=== PATIENT | female | born 1965 | race Caucasian/White ===

== ENCOUNTER 2018-11-20 15:18 | Inpatient (IN) | payer OTHER ==
[~2018-11-20] VITALS: Ht 162.6 cm; Wt 98.5 kg
[~2018-11-20 15:18] MED LIST: Amphetamine Sal20 MG PO; CIPR500 PO; LEVSOD100 PO; LEVSOD125 PO; METR500 PO; NABU750; OXYC5 PO; Prozac20 MG PO
[2018-11-20 16:07] LABS: BASOPHILS ABSOLUTE AUTO 0.01 K/mm3 (0.00-0.23); BASOPHILS PERCENT AUTO 0 % (0-2); EOSINOPHILS ABSOLUTE AUTO 0.23 K/mm3 (0.00-0.68); EOSINOPHILS PERCENT AUTO 4 % (0-6); IMMATURE GRAN ABSOLUTE AUTO 0.02 K/mm3 (0.00-0.10); IMMATURE GRAN PERCENT AUTO 0 % (0-1); LYMPHOCYTES ABSOLUTE AUTO 1.28 K/mm3 (0.84-5.20); LYMPHOCYTES PERCENT AUTO 23 % (21-46); MONOCYTES ABSOLUTE AUTO 0.44 K/mm3 (0.16-1.47); MONOCYTES PERCENT AUTO 8 % (4-13); Mean Corpuscular HGB 17.6 pg (26.0-34.0); Mean Corpuscular Volume 71 fL (80-100); Mean Platelet Volume 10.5 fL (9.1-12.4); NEUTROPHILS ABSOLUTE AUTO 3.53 K/mm3 (1.96-9.15); NEUTROPHILS PERCENT AUTO 64 % (41-73); Platelet Count 419 K/mm3 (150-400); RDW Coefficient Variation 19.9 % (11.7-14.2); Red Blood Cell Count 2.04 M/mm3 (3.80-5.20); White Blood Cell Count 5.51 K/mm3 (4.00-11.30)
[2018-11-20 16:18] LABS: Hemoglobin 3.6 g/dL (11.5-16.0)
[2018-11-20 16:19] LABS: Hematocrit 14.4 % (33.0-51.0)
[2018-11-20 16:33] LABS: Alanine Aminotransfer (ALT/SGP 12 U/L (12-78); Albumin, Blood 3.3 g/dL (3.4-5.0); Alk Phos 79 U/L (50-136); Anion Gap 7 mmol/L (6-16); Aspartate Aminotrans (AST/SGOT 7 U/L (12-37); Bilirubin, Total 0.2 mg/dL (0.1-1.0); Blood Urea Nitrogen 9 mg/dL (8-24); Bun/Creatinine Ratio 14.3 (12.0-20.0); CO2, Blood 23 mmol/L (21-32); Calcium, Blood 7.9 mg/dL (8.5-10.1); Chloride, Blood 110 mmol/L (98-108); Creatinine, Blood 0.63 mg/dL (0.40-1.00); Globulin, Blood 3.4 g/dL (2.2-4.0); Glomerular Filtration Rate >60 (60-); Glucose, Blood 171 mg/dL (70-99); Potassium, Blood 3.9 mmol/L (3.5-5.5); Sodium, Blood 140 mmol/L (136-145); Total Protein, Blood 6.7 g/dL (6.4-8.2); Troponin I <0.015 ng/mL (0.000-0.040)
[2018-11-20] MEDS ORDERED: AMIT50 PO (19:57)
[2018-11-20] MEDS ORDERED: IBUP800 PO (19:58)
[2018-11-20 20:48] LABS: International Normalized Ratio 0.97; Prothrombin Time Results 10.3 Sec (9.7-11.5)
[2018-11-21 06:16] LABS: Anion Gap 8 mmol/L (6-16); Blood Urea Nitrogen 11 mg/dL (8-24); Bun/Creatinine Ratio 16.4 (12.0-20.0); CO2, Blood 23 mmol/L (21-32); Calcium, Blood 7.7 mg/dL (8.5-10.1); Chloride, Blood 110 mmol/L (98-108); Creatinine, Blood 0.67 mg/dL (0.40-1.00); Glomerular Filtration Rate >60 (60-); Glucose, Blood 99 mg/dL (70-99); Sodium, Blood 141 mmol/L (136-145)
[2018-11-21 10:19] LABS: BASOPHILS ABSOLUTE AUTO 0.03 K/mm3 (0.00-0.23); BASOPHILS PERCENT AUTO 0 % (0-2); EOSINOPHILS ABSOLUTE AUTO 0.27 K/mm3 (0.00-0.68); EOSINOPHILS PERCENT AUTO 4 % (0-6); Hematocrit 21.2 % (33.0-51.0); IMMATURE GRAN ABSOLUTE AUTO 0.01 K/mm3 (0.00-0.10); IMMATURE GRAN PERCENT AUTO 0 % (0-1); LYMPHOCYTES ABSOLUTE AUTO 1.69 K/mm3 (0.84-5.20); LYMPHOCYTES PERCENT AUTO 25 % (21-46); MONOCYTES PERCENT AUTO 7 % (4-13); Mean Corpuscular HGB 21.4 pg (26.0-34.0); Mean Corpuscular HGB Conc 28.3 g/dL (31.5-36.5); Mean Platelet Volume 10.8 fL (9.1-12.4); NEUTROPHILS ABSOLUTE AUTO 4.26 K/mm3 (1.96-9.15); NEUTROPHILS PERCENT AUTO 63 % (41-73); Platelet Count 378 K/mm3 (150-400); RDW Coefficient Variation 19.7 % (11.7-14.2); RDW Standard Deviation 54.6 fL (35.1-46.3); Red Blood Cell Count 2.81 M/mm3 (3.80-5.20); White Blood Cell Count 6.76 K/mm3 (4.00-11.30)
[2018-11-21 10:22] LABS: Mean Corpuscular Volume 75 fL (80-100)
[2018-11-21 11:24] LABS: Source, Urine Clean Catch
[2018-11-21 11:57] LABS: Bilirubin, Urine Neg (Neg); Blood, Urine 2+ (Neg); Glucose Qualitative, Urine Neg (Neg); Ketones, Urine Neg (Neg); Leukocyte Esterase, Urine 2+ (Neg); Nitrite, Urine Neg (Neg); Protein, Urine Neg (Neg); Urobilinogen, Urine NORM (Normal)
[2018-11-21 12:03] LABS: Color, Urine Yellow (P-Yellow)
[2018-11-21 12:04] LABS: Appearance, Urine Clear (Clear)
[2018-11-21 12:07] LABS: Squamous Epithelial Cells Few /hpf (Few)
[2018-11-21 12:08] LABS: Bacteria Few /hpf
[2018-11-21 12:09] LABS: BASOPHILS ABSOLUTE MAN 0.06 K/mm3 (0.00-0.23); BASOPHILS PERCENT MAN 1 % (0-2); EOSINOPHILS PERCENT MAN 6 % (0-6); LYMPHOCYTES ABSOLUTE MAN 1.08 K/mm3 (0.84-5.20); LYMPHOCYTES PERCENT MAN 16 % (21-46); MONOCYTES ABSOLUTE MAN 0.47 K/mm3 (0.16-1.47); MONOCYTES PERCENT MAN 7 % (4-13); NEUTROPHILS ABSOLUTE MAN 4.73 K/mm3 (1.96-9.15); SEG NEUTROPHILS PERCENT MAN 70 % (41-73); TOTAL CELLS COUNTED 100
--- NOTE | 2018-11-21 16:36 | NUR ---
Initial Visit: Palliative Care Consult for AD/POLST and Advanced Care Planning. Pt is A&Ox4 and reports 6/10 pain in her lower back and tail bone area. She reports changing positions and sitting up in a chair manages her pain. She also reports mild anxiety due to not knowing what the plan is. Pt denies dyspnea at this time. Engaged in therapeutic conversation regarding goals of care. Pt lives at home with her daughter who is present along with Pt's son and daughter in law. Pt reports that she does not have any congregation beliefs. At her baseline Pt use her wheel chair to get around and is capable of ambulation only a few feet. Pt reports this is due to deconditioning when she was heavier. Other bunn she is independent and able to dress her self, shower self, toilet, self, and cook for self. Pt reports adequate support between her family and friends. Discussed AD/POLST with Pt and left one of each with her. Educated Pt on each section in instructed Pt to contact palliative care with any questions completing forms. Pt reports at this time her biggest concerns are receiving scheduled meal trays, to speak with hospitalist of plan, and medication intervention for bowel management. Pt reports that she has not had a BM since last . Spoke with Pt's nurse and she reports that Pt has a scheduled meal tray order that will begin with dinner today. She is also agreeable for this RN to contact hospitalist regarding bowel regimen for Pt. No other concerns reported at this time. Spoke with Dr Freeman and she reports that she will consider order bowel regimen after visiting with Pt. Plan is to obtain POLST/AD once completed. Will remain available.
--- NOTE | 2018-11-22 04:46 | NUR ---
SHIFT SUMMARY PATIENT HAS BEEN ALERT AND ORIENTED X 3 THROUGHOUT SHIFT. SHE HAS BEEN PLEASANT AND COOPERATIVE WITH VITALS AND ASSESSMENTS. PT CAME IN RECEIVING BLOOD DURING HER TRANSFER FROM ER TO PCU. SHE HAD A SECOND UNIT OF BLOOD ADMINISTERED ON THE FLOOR AND TOLERATED IT WITHOUT ISSUE. PT VITALS REMAINED STABLE AND SHE DENIED ANY CHEST PAIN OR DISCOMFORT. PT DID HAVE SOME PAIN IN HER TAILBONE SHE RELATED TO SITTING SO MUCH SINCE SHE HAS BEEN HERE. PT USES WHEELCHAIR AT HOME AND SELF TRANSFERS TO AND FROM BED TO CHAIR. SHE IS INDEPENDENT IN THE ROOM AND USES BATHROOM WITHOUT ISSUE. PT STATES THAT SHE FEELS BETTER FOLLOWING BLOOD TRANSFUSION. SHE HAS HAD NO SIGNS OF BLEEDING AT THIS TIME. DR. GONG WAS IN THE ROOM AT ADMIT TO TALK WITH HER. PT WILL CONTINUE TO BE MONITORED UNTIL HANDOFF TO DAYSHIFT RN.
[2018-11-22 05:13] LABS: BASOPHILS ABSOLUTE AUTO 0.04 K/mm3 (0.00-0.23); BASOPHILS PERCENT AUTO 1 % (0-2); EOSINOPHILS ABSOLUTE AUTO 0.35 K/mm3 (0.00-0.68); EOSINOPHILS PERCENT AUTO 6 % (0-6); Hematocrit 24.9 % (33.0-51.0); Hemoglobin 7.5 g/dL (11.5-16.0); IMMATURE GRAN ABSOLUTE AUTO 0.02 K/mm3 (0.00-0.10); IMMATURE GRAN PERCENT AUTO 0 % (0-1); LYMPHOCYTES ABSOLUTE AUTO 1.97 K/mm3 (0.84-5.20); LYMPHOCYTES PERCENT AUTO 33 % (21-46); MONOCYTES ABSOLUTE AUTO 0.58 K/mm3 (0.16-1.47); MONOCYTES PERCENT AUTO 10 % (4-13); Mean Corpuscular HGB 23.2 pg (26.0-34.0); Mean Corpuscular HGB Conc 30.1 g/dL (31.5-36.5); Mean Corpuscular Volume 77 fL (80-100); Mean Platelet Volume 10.3 fL (9.1-12.4); NEUTROPHILS ABSOLUTE AUTO 3.09 K/mm3 (1.96-9.15); NEUTROPHILS PERCENT AUTO 51 % (41-73); Platelet Count 353 K/mm3 (150-400); RDW Coefficient Variation 18.9 % (11.7-14.2); RDW Standard Deviation 53.9 fL (35.1-46.3); Red Blood Cell Count 3.23 M/mm3 (3.80-5.20); White Blood Cell Count 6.05 K/mm3 (4.00-11.30)
[2018-11-22 05:50] LABS: Albumin, Blood 2.8 g/dL (3.4-5.0); Anion Gap 9 mmol/L (6-16); Blood Urea Nitrogen 12 mg/dL (8-24); Bun/Creatinine Ratio 18.8 (12.0-20.0); CO2, Blood 21 mmol/L (21-32); Calcium, Blood 7.6 mg/dL (8.5-10.1); Chloride, Blood 110 mmol/L (98-108); Creatinine, Blood 0.64 mg/dL (0.40-1.00); Glomerular Filtration Rate >60 (60-); Glucose, Blood 83 mg/dL (70-99); Phosphorus, Blood 3.9 mg/dL (2.5-4.9); Sodium, Blood 140 mmol/L (136-145)
--- NOTE | 2018-11-22 11:28 | NUR ---
PT GAVE KASHMIR PERMISSION TO PROVIDE CARE 11/22/18.
[2018-11-22 12:01] LABS: Hemoglobin 7.9 g/dL (11.5-16.0)
--- NOTE | 2018-11-22 14:38 | NUR ---
PCU DAYSHIFT ASSUMED CARE OF PT APPROX. 0700. PT A&O X4. ASSESSMENT COMPLETED. VITAL SIGNS STABLE. RECIEVED ORDERS FROM GI PHYSICAIN TO MAKE PT NPO FOR COLONOSCOPY TODAY. PT NPO AND BEGAN PREP ORDERED. PT BED IN LOW POSITION, CALL LIGHT IN REACH AND PT WHEELCHAIR AT BEDSIDE. WILL CONTINUE TO MONITOR.
--- NOTE | 2018-11-22 16:21 | NUR ---
History, Chart, Medications and Allergies reviewed before start of procedure.Lungs clear T/O to Auscultation. Pre-Op teaching done. Pt verbalizes understanding. Patient confirms NPO status and agrees with scheduled surgery.
--- NOTE | 2018-11-22 19:43 | NUR ---
SHIFT SUMMARY PT PLEASANT, COOPERATIVE AND USES CALL LIGHT APPROPRIATELY. PT REMAINS A&O X4. ASSESSMENT FINDINGS REMAIN UNCHANGED. VITAL SIGNS STABLE. PT WENT TO DAY SURGERY FOR COLONOSCOPY. PT ARRIVED BACK TO UNIT. NO S/SX OF ACUTE DISTRESS. REPORT WAS RECIEVED. PT WAS UNABLE TO HAVE COLONOSCOPY DONE PT WAS NOT CLEANED OUT ALL THE WAY. PT WAS STILL SEDATED. BEGAN MONITORING VITALS SIGNS PER PROTOCOL. PT TO UNDERGO COLONOSCOPY TOMORROW. BED IN LOW POSITION, CALL LIGHT IN REACH AND PT DENIES ANY NEEDS AT THIS TIME. WILL CONTINUE TO MONITOR UNTIL HANDOFF TO NIGHTSHIFT RN.
[2018-11-23 04:11] LABS: BASOPHILS ABSOLUTE AUTO 0.03 K/mm3 (0.00-0.23); BASOPHILS PERCENT AUTO 1 % (0-2); EOSINOPHILS PERCENT AUTO 7 % (0-6); Hematocrit 26.2 % (33.0-51.0); Hemoglobin 7.8 g/dL (11.5-16.0); IMMATURE GRAN ABSOLUTE AUTO 0.02 K/mm3 (0.00-0.10); IMMATURE GRAN PERCENT AUTO 0 % (0-1); LYMPHOCYTES ABSOLUTE AUTO 1.77 K/mm3 (0.84-5.20); LYMPHOCYTES PERCENT AUTO 31 % (21-46); MONOCYTES ABSOLUTE AUTO 0.53 K/mm3 (0.16-1.47); MONOCYTES PERCENT AUTO 9 % (4-13); Mean Corpuscular HGB 23.6 pg (26.0-34.0); Mean Corpuscular HGB Conc 29.8 g/dL (31.5-36.5); Mean Corpuscular Volume 79 fL (80-100); Mean Platelet Volume 10.2 fL (9.1-12.4); NEUTROPHILS ABSOLUTE AUTO 3.01 K/mm3 (1.96-9.15); NEUTROPHILS PERCENT AUTO 52 % (41-73); Platelet Count 397 K/mm3 (150-400); RDW Standard Deviation 57.3 fL (35.1-46.3); Red Blood Cell Count 3.31 M/mm3 (3.80-5.20); White Blood Cell Count 5.76 K/mm3 (4.00-11.30)
[2018-11-23 04:26] LABS: Albumin, Blood 2.8 g/dL (3.4-5.0); Anion Gap 9 mmol/L (6-16); Blood Urea Nitrogen 7 mg/dL (8-24); Bun/Creatinine Ratio 12.5 (12.0-20.0); CO2, Blood 24 mmol/L (21-32); Calcium, Blood 7.8 mg/dL (8.5-10.1); Chloride, Blood 109 mmol/L (98-108); Creatinine, Blood 0.56 mg/dL (0.40-1.00); Glomerular Filtration Rate >60 (60-); Glucose, Blood 88 mg/dL (70-99); Phosphorus, Blood 3.4 mg/dL (2.5-4.9); Potassium, Blood 3.7 mmol/L (3.5-5.5); Sodium, Blood 142 mmol/L (136-145)
--- NOTE | 2018-11-23 16:00 | NUR ---
PT TAKEN TO DAY SURGERY FOR PROCEDURE. WILL AWAIT RETURN.
--- NOTE | 2018-11-23 16:44 | NUR ---
11/23/18 1644 Wendy Pitt History, Chart, Medications and Allergies reviewed before start of procedure.PATIENT DETERMINED TO BE ASA APPROPRIATE FOR PROPOFOL SEDATION PRIOR TO START OF PROCEDURE BY . DISCUSSED WITH MD PRIOR TO THE START OF PATINET THAT PATIENT HAS INCREASED BMI GREATER THAN 40 WELL HX OF MIRA. MD FEELS APPROPRIATE FOR RN SEDATION. MONITOR INTACT WITH CONTINUOUS PULSE OXIMETRY AND INTERMITTENT BP. 3-LEAD EKG REVIEWED WITH PHYSICIAN PRIOR TO START OF PROCEDURE.O2 VIA N/C INTACT THROUGHOUT SEDATION/PROCEDURE.
--- NOTE | 2018-11-23 18:01 | NUR ---
PT RETURNED FROM DAY SURGERY. PT ALERT AND ORIENTED. RECOVERY VITALS HAVE BEEN STARTED AND HAVE BEEN STABLE. PT DENIES ANY PAIN OR NAUSEA AT THIS TIME. PT REPORTS MINIMAL VAGINAL BLEEDING THIS SHIFT. PT ABLE TO TRANSFER TO WHEELCHAIR INDEPENDENTLY AND GO TO THE BATHROOM NEEDED WITH A SBA. PT ABLE TO SIT UP AND CONVERSE WITH FAMILY AT THIS TIME. WILL CONTINUE TO MONITOR AND REPORT TO ONCOMING RN. WILL REMAIN IN ROOM FOR 15 MINUTES.
[2018-11-24 05:42] LABS: BASOPHILS ABSOLUTE AUTO 0.06 K/mm3 (0.00-0.23); BASOPHILS PERCENT AUTO 1 % (0-2); EOSINOPHILS ABSOLUTE AUTO 0.45 K/mm3 (0.00-0.68); EOSINOPHILS PERCENT AUTO 7 % (0-6); Hematocrit 26.5 % (33.0-51.0); Hemoglobin 7.7 g/dL (11.5-16.0); IMMATURE GRAN ABSOLUTE AUTO 0.03 K/mm3 (0.00-0.10); IMMATURE GRAN PERCENT AUTO 0 % (0-1); LYMPHOCYTES ABSOLUTE AUTO 1.75 K/mm3 (0.84-5.20); LYMPHOCYTES PERCENT AUTO 25 % (21-46); MONOCYTES ABSOLUTE AUTO 0.56 K/mm3 (0.16-1.47); MONOCYTES PERCENT AUTO 8 % (4-13); Mean Corpuscular HGB 23.3 pg (26.0-34.0); Mean Corpuscular HGB Conc 29.1 g/dL (31.5-36.5); Mean Corpuscular Volume 80 fL (80-100); Mean Platelet Volume 10.4 fL (9.1-12.4); NEUTROPHILS ABSOLUTE AUTO 4.09 K/mm3 (1.96-9.15); NEUTROPHILS PERCENT AUTO 59 % (41-73); Platelet Count 402 K/mm3 (150-400); RDW Standard Deviation 59.7 fL (35.1-46.3); Red Blood Cell Count 3.31 M/mm3 (3.80-5.20); White Blood Cell Count 6.94 K/mm3 (4.00-11.30)
--- NOTE | 2018-11-24 06:07 | NUR ---
PCU NOC SHIFT SUMMARY PATIENT ALERT AND ORIENTED X4. INDEPENDENT IN ROOM WITH WHEELCHAIR (SELF TRANSFERS). PATIENTS L/S CLEAR, RESP E/U ON ROOM AIR. VSS. NO S/SX OF DISTRESS NOTED T/O SHIFT. PATIENT STATES THAT SHE IS HOPING TO D/C HOME TODAY AFTER HER SCOPE YESTERDAY. VERY MILD VAGINAL SPOTTING NOTED THIS SHIFT. WILL CONTINUE TO MONITOR AND REPORT TO DAYSHIFT RN.
[2018-11-24] MEDS ORDERED: Tylenol325 MG PO (08:37)
[2018-11-24] MEDS ORDERED: Amoxicillin875 MG PO (08:39)
[2018-11-24] MEDS ORDERED: Ferrous Sulfat324 MG PO (08:42)
== END 2018-11-24 09:34 | disposition home or self-care (01) | DRG 378 ==
LOC: ER 15:18 → ERHOLD 20:01 → PCU 20:01
PROVIDERS: Emergency Medicine; Family Medicine; Hospitalist; Internal Medicine Gastroenterology; Nurse Practitioner Acute Care; Physician Assistant; ADMIT Hospitalist
PROC: 30233N1 Transfusion of Nonautologous Red Blood Cells into Peripheral Vein, Percutaneous Approach (ICD-10-PCS; principal; 2018-11-20)
PROC: 3E02340 Introduction of Influenza Vaccine into Muscle, Percutaneous Approach (ICD-10-PCS; 2018-11-21)
PROC: 0DJD8ZZ Inspection of Lower Intestinal Tract, Via Natural or Artificial Opening Endoscopic (ICD-10-PCS; 2018-11-22)
PROC: 0DBL8ZX Excision of Transverse Colon, Via Natural or Artificial Opening Endoscopic, Diagnostic (ICD-10-PCS; 2018-11-23)
PROC: 0DBP8ZX Excision of Rectum, Via Natural or Artificial Opening Endoscopic, Diagnostic (ICD-10-PCS; 2018-11-23)
PROC: 0DBM8ZX Excision of Descending Colon, Via Natural or Artificial Opening Endoscopic, Diagnostic (ICD-10-PCS; 2018-11-23 16:00)
DX: K92.1 Melena (principal); D62 Acute posthemorrhagic anemia; N39.0 Urinary tract infection, site not specified; Z68.41 Body mass index [BMI] 40.0-44.9, adult; K57.32 Diverticulitis of large intestine without perforation or abscess without bleeding; N92.1 Excessive and frequent menstruation with irregular cycle; E28.2 Polycystic ovarian syndrome; E66.01 Morbid (severe) obesity due to excess calories; R73.03 Prediabetes; R07.9 Chest pain, unspecified; E89.0 Postprocedural hypothyroidism; K63.5 Polyp of colon; B95.1 Streptococcus, group B, as the cause of diseases classified elsewhere; K64.8 Other hemorrhoids; D17.79 Benign lipomatous neoplasm of other sites; Z23 Encounter for immunization; Z98.84 Bariatric surgery status; Z79.899 Other long term (current) drug therapy; Z88.1 Allergy status to other antibiotic agents
CPT/HCPCS: 36415; 36430; 71046; 76830; 76856; 80048; 80053; 80069; 81001; 82607; 82728; 82746; 83540; 83550; 83735; 84439; 84443; 84484; 85014; 85018; 85025; 85610; 86850; 86900; 86901; 86920; 87086; 87147; 90686; 93005; 93010; 96361; 96365; 96366; 96375; 99285-25; C9113; G0008; J2270; J7030; J7120; P9016

== ENCOUNTER → 2018-11-28 | Outpatient (CLI) | payer OTHER ==
[~2018-11-28] MED LIST changes: +AMIT50 PO; +Amoxicillin875 MG PO; +Ferrous Sulfat324 MG PO; +IBUP800 PO; +Tylenol325 MG PO
== END | disposition home or self-care (01) ==
LOC: LAB SHORT 12:26 → PLD 12:26
DX: C54.1 Malignant neoplasm of endometrium (principal)
CPT/HCPCS: 88305

== ENCOUNTER 2019-01-14 12:13 | Inpatient (IN) | payer OTHER ==
[~2019-01-14] VITALS: Ht 162.6 cm; Wt 96.2 kg
[~2019-01-14 12:13] MED LIST changes: -Ferrous Sulfat324 MG PO; +Ferrous Sulfat325 M2 PO; -LEVSOD100 PO; +LEVSOD150 PO
[2019-01-14 13:48] LABS: Hematocrit 27.1 % (33.0-51.0); Hemoglobin 8.3 g/dL (11.5-16.0); Mean Corpuscular HGB 26.6 pg (26.0-34.0); Mean Corpuscular HGB Conc 30.6 g/dL (31.5-36.5); Mean Corpuscular Volume 87 fL (80-100); Mean Platelet Volume 9.3 fL (9.1-12.4); Platelet Count 674 K/mm3 (150-400); RDW Standard Deviation 66.9 fL (35.1-46.3); Red Blood Cell Count 3.12 M/mm3 (3.80-5.20); White Blood Cell Count 43.04 K/mm3 (4.00-11.30)
[2019-01-14 14:04] LABS: Albumin, Blood 1.7 g/dL (3.4-5.0); Albumin/Globulin Ratio 0.3 (0.8-1.8); Bilirubin, Total 0.4 mg/dL (0.1-1.0); Bun/Creatinine Ratio 42.6 (12.0-20.0); Creatinine, Blood 1.15 mg/dL (0.40-1.00); Globulin, Blood 5.1 g/dL (2.2-4.0); Potassium, Blood 4.4 mmol/L (3.5-5.5); Total Protein, Blood 6.8 g/dL (6.4-8.2)
[2019-01-14] MEDS ORDERED: Diflucan100 MG PO (14:46)
[2019-01-14] MEDS ORDERED: Norco 5-325 Ta1 EACH PO (14:46)
[2019-01-14 15:11] LABS: BAND PERCENT MAN 3 % (0-8); BASOPHILS PERCENT MAN 0 % (0-2); EOSINOPHILS PERCENT MAN 0 % (0-6); MONOCYTES PERCENT MAN 0 % (4-13); MYELOCYTE ABSOLUTE MAN 0.43 K/mm3 (0.00-0.00); MYELOCYTE PERCENT MAN 1 % (0-0); SEG NEUTROPHILS PERCENT MAN 96 % (41-73); TOTAL CELLS COUNTED 100
[2019-01-14] MEDS ORDERED: Metformin HCl500 MG PO (16:02)
[2019-01-14] MEDS ORDERED: IBUP800 PO (16:03)
[2019-01-14] MEDS ORDERED: AMIT50 PO (16:04)
[2019-01-14] MEDS ORDERED: ALPR1 PO (16:11)
[2019-01-14] MEDS ORDERED: TRIDERM28.4 GM TOP (16:25)
[2019-01-14] MEDS ORDERED: CHOL10002 PO (16:27)
--- NOTE | 2019-01-14 18:56 | NUR ---
PT ARRIVED TO THE ROOM AT APPROXIMATELY 1745. PT ALERT AND ORIENTED UPON ARRIVAL. COMPLAINED OF 9/10 PAIN. PT REPORTS PAIN MEDICATION WAS MINIMALLY EFFECTIVE INI THE ER. WILL CONTINUE TO MONITOR.
--- NOTE | 2019-01-14 18:57 | NUR ---
DR. LAN NOTIFIED THAT PT ARRIVED TO THE ROOM. ADMIT ORDERS REQUSTED.
--- NOTE | 2019-01-14 20:10 | NUR ---
SHIFT SUMMARY PT REPORTS PAIN IS ELEVATED AND IS NOT RESOLVED WITH IV PAIN MEDICATION. PT ALERT AND ORIENTED. FAMILY AT THE BEDSIDE WILL CONTINUE TO MONITOR.
--- NOTE | 2019-01-14 21:30 | NUR ---
VEGAS: VEGAS CATH PLACED PER ORDERS. LABIA W/YEASTY, WHITE COATING. LABIA BEGAN TO BLEED AFTER WIPING GENTLY. PT TEARFUL W/LIGHT TOUCH. REP BURNING SENSATION W/CLEANSING AREA. PT STATED "JUST HURRY" PT CONSOLED AND EDUCATED ON IMPORTANCE OF CLEANSING AREA PRIOR TO CATH PLACEMENT. PT REP UNABLE TO SEPARATE LEGS, REQESTED ADDITIONAL STAFF TO ASSIST W/HOLDING LEGS APART. 2 RN'S, GENERAL OPERATIONS AGENT AND STUDENT NURSE IN FOR PLACEMENT. PT EDUCATED AND REASSURRED DURING PROCEDURE. PT APPOLOGETIC R/T TEARFULNESS DURING PROCEDURE, THANKED STAFF FOR UNDERSTANDING. DAUGHTER OUT OF ROOM DURING PROCEDURE, UPDATED AFTER.
[2019-01-14 21:41] LABS: Source, Urine Catheter
[2019-01-14 21:45] LABS: Appearance, Urine Clear (Clear); Bilirubin, Urine Neg (Neg); Blood, Urine Neg (Neg); Color, Urine Yellow (P-Yellow); Glucose Qualitative, Urine Neg (Neg); Ketones, Urine Neg (Neg); Leukocyte Esterase, Urine Neg (Neg); Nitrite, Urine Neg (Neg); Protein, Urine 1+ (Neg); Specific Gravity, Urine 1.015 (1.003-1.022); Urobilinogen, Urine NORM (Normal)
--- NOTE | 2019-01-14 22:00 | NUR ---
NURSING COUNSELOR DORMITORY NOTIFIED BY PT FAMILY MEMBER OF CONCERN R/T PT. THIS RN IN TO ASSESS FOR ANY CONCERNS PT MAY HAVE. PT AND DAUGHTER DENIED ANY CONCERNS. NURSING COUNSELOR DORMITORY ALSO IN TO SPEAK W/PT AND DAUGHTER REGARDING ANY POTENTIAL CONCERNS W/CARE, STAFF, ETC. BOTH PT AND DAUGHTER DENIED HAVING ANY CONCERNS OR ISSUES.
--- NOTE | 2019-01-15 04:22 | NUR ---
CORRECTION SHIFT SUMMARY COMPLETED AT 1945 ON 01/14/19
--- NOTE | 2019-01-15 04:28 | NUR ---
CORRECTION SHIFT ASSESSMENT COMPLETED AT 1945 ON 01/14/19.
[2019-01-15 05:27] LABS: BASOPHILS ABSOLUTE AUTO 0.12 K/mm3 (0.00-0.23); BASOPHILS PERCENT AUTO 0 % (0-2); EOSINOPHILS ABSOLUTE AUTO 0.01 K/mm3 (0.00-0.68); EOSINOPHILS PERCENT AUTO 0 % (0-6); Hemoglobin 7.1 g/dL (11.5-16.0); IMMATURE GRAN ABSOLUTE AUTO 1.86 K/mm3 (0.00-0.10); IMMATURE GRAN PERCENT AUTO 4 % (0-1); LYMPHOCYTES ABSOLUTE AUTO 0.92 K/mm3 (0.84-5.20); LYMPHOCYTES PERCENT AUTO 2 % (21-46); MONOCYTES ABSOLUTE AUTO 0.73 K/mm3 (0.16-1.47); MONOCYTES PERCENT AUTO 2 % (4-13); Mean Corpuscular HGB Conc 30.9 g/dL (31.5-36.5); Mean Corpuscular Volume 88 fL (80-100); Mean Platelet Volume 9.3 fL (9.1-12.4); NEUTROPHILS ABSOLUTE AUTO 43.35 K/mm3 (1.96-9.15); NEUTROPHILS PERCENT AUTO 92 % (41-73); Platelet Count 672 K/mm3 (150-400); RDW Coefficient Variation 20.5 % (11.7-14.2); RDW Standard Deviation 66.1 fL (35.1-46.3); Red Blood Cell Count 2.63 M/mm3 (3.80-5.20); White Blood Cell Count 46.99 K/mm3 (4.00-11.30)
[2019-01-15 05:48] LABS: Anion Gap 9 mmol/L (6-16); Blood Urea Nitrogen 35 mg/dL (8-24); Bun/Creatinine Ratio 44.4 (12.0-20.0); CO2, Blood 21 mmol/L (21-32); Calcium, Blood 6.9 mg/dL (8.5-10.1); Chloride, Blood 105 mmol/L (98-108); Creatinine, Blood 0.79 mg/dL (0.40-1.00); Glomerular Filtration Rate >60 (60-); Glucose, Blood 108 mg/dL (70-99); Potassium, Blood 4.4 mmol/L (3.5-5.5); Sodium, Blood 135 mmol/L (136-145)
--- NOTE | 2019-01-15 07:10 | NUR ---
pt sleeping wakes to verbal stimuli stated pain is 6/10 having some mild nausea off and on pt stated pain is in mult places using lens hardener also has a ice pack to middle of her legs pt stated her yeast infection is very painful to the touch and her mouth also hurts due to yeast
--- NOTE | 2019-01-15 07:21 | NUR ---
SHIFT SUMMARY PT TRANSFER FROM ED WITH COMPLAINS OF LOWER ABD/PELVIC PAIN FOLLOWING RECENT HYSTERECTOMY 3 WEEKS AGO PER PATIENT REPORT. BP TRENDING HYPO, INCREASED TO APPROXIMATELY 100/80 FOLLOWING FLUID BOLUS PER ORDERS. 02 SATS >90 ON RA. PT IS MINIMALLY AMBULATORY AT BASELINE, W/C BOUND DUE TO LIMITED ROM AND HIP PAIN. PT COMPLAINS OF PAIN R/T RED RASH UNDER PANNUS AND GANGA AREA. REDNESS AND AREA OF SKIN BREAKDOWN NOTED ON COCCYX, MEPILEX DRESSING PLACED. GANGA CARE DONE AND VEGAS CATHETER PLACED PER CLINICAL JUDGMENT, PT REPORT OF SEVERE PAIN WITH MOVEMENT AND INABILITY TO VOID USING BEDPAN. PT REP ADEQUATE PAIN RELIEF WITH MEDICATION PER ORDERS.
--- NOTE | 2019-01-15 07:53 | NUR ---
dr barnhart ans service called re low b/p talked with dr barnhart re hosp consult to manage b/p
--- NOTE | 2019-01-15 09:12 | NUR ---
PT HAS POS BC DR MILLARD NOTIFIED GRAM POS COCCI IN CHAINS MESSAGE LEFT
--- NOTE | 2019-01-15 09:14 | NUR ---
DR LAN CALLED
--- NOTE | 2019-01-15 11:34 | NUR ---
1 UNIT PRBC INFUSING
--- NOTE | 2019-01-15 12:35 | NUR ---
DR LAN BY TO SEE PT PLAN TO TRANSFER TO [facility] UNDER DR NATARAJAN CARE FOR POSS OR TO REMOVE POST-OP INFECTION DR MILLARD AT BEDSIDE
--- NOTE | 2019-01-15 14:00 | NUR ---
pt ref her nystatin powder discussed with pt importance for her skin pt has multiple openings in her skin also encouraging pt to turn pt understands ok per dr barnhart to give drum drier bolus 25 mcg pt still declining
--- NOTE | 2019-01-15 16:58 | NUR ---
REPORT CALLED TO KATHY JENSEN AT [facility] TRANSPORT TEAM IN ROOM
--- NOTE | 2019-01-15 17:45 | NUR ---
TRANSPORT VIA GROUND WITH RN ACOUSTIC INTELLIGENCE SPECIALIST TO [facility]
== END 2019-01-15 17:47 | disposition short-term general hospital (02) | DRG 862 ==
LOC: ER 12:13 → SURS 15:44
PROVIDERS: Emergency Medicine; ADMIT Obstetrics & Gynecology
PROC: 30253N1 (ICD-10-PCS; principal; 2019-01-14)
DX: T81.43XA Infection following a procedure, organ and space surgical site, initial encounter (principal); K65.1 Peritoneal abscess; B37.9 Candidiasis, unspecified; T81.44XA Sepsis following a procedure, initial encounter; D50.9 Iron deficiency anemia, unspecified; E03.9 Hypothyroidism, unspecified; E11.9 Type 2 diabetes mellitus without complications; E66.01 Morbid (severe) obesity due to excess calories; M79.7 Fibromyalgia; Z98.84 Bariatric surgery status; E05.00 Thyrotoxicosis with diffuse goiter without thyrotoxic crisis or storm; C54.1 Malignant neoplasm of endometrium
CPT/HCPCS: 36415; 36430; 74176; 76705; 80048; 80053; 83605; 83690; 85025; 86850; 86900; 86901; 86923; 87040; 87081; 87147; 87430; 96365; 96375; 99285-25; A9270-GY; J1170; J1650; J2405; J2543; J3010; J3370; J7030; J7050; J7120; P9016

== ENCOUNTER 2019-05-06 17:32 | Emergency (ER) | payer OTHER ==
[~2019-05-06] VITALS: Ht 162.6 cm; Wt 86.2 kg
[~2019-05-06 17:32] MED LIST changes: +ALPR1 PO; +CHOL10002 PO; +Diflucan100 MG PO; +Metformin HCl500 MG PO; +Norco 5-325 Ta1 EACH PO; +TRIDERM28.4 GM TOP
[2019-05-06 18:06] LABS: BASOPHILS ABSOLUTE AUTO 0.01 K/mm3 (0.00-0.23); BASOPHILS PERCENT AUTO 0 % (0-2); EOSINOPHILS ABSOLUTE AUTO 0.01 K/mm3 (0.00-0.68); EOSINOPHILS PERCENT AUTO 0 % (0-6); Hematocrit 32.4 % (33.0-51.0); Hemoglobin 10.4 g/dL (11.5-16.0); IMMATURE GRAN ABSOLUTE AUTO 0.05 K/mm3 (0.00-0.10); IMMATURE GRAN PERCENT AUTO 2 % (0-1); LYMPHOCYTES ABSOLUTE AUTO 0.13 K/mm3 (0.84-5.20); LYMPHOCYTES PERCENT AUTO 5 % (21-46); MONOCYTES ABSOLUTE AUTO 0.04 K/mm3 (0.16-1.47); MONOCYTES PERCENT AUTO 2 % (4-13); Mean Corpuscular HGB 31.5 pg (26.0-34.0); Mean Corpuscular HGB Conc 32.1 g/dL (31.5-36.5); Mean Corpuscular Volume 98 fL (80-100); Mean Platelet Volume 9.9 fL (9.1-12.4); NEUTROPHILS ABSOLUTE AUTO 2.45 K/mm3 (1.96-9.15); NEUTROPHILS PERCENT AUTO 91 % (41-73); Platelet Count 157 K/mm3 (150-400); RDW Coefficient Variation 15.9 % (11.7-14.2); RDW Standard Deviation 54.6 fL (35.1-46.3); White Blood Cell Count 2.69 K/mm3 (4.00-11.30)
[2019-05-06 18:29] LABS: Alanine Aminotransfer (ALT/SGP 85 U/L (12-78); Albumin, Blood 3.3 g/dL (3.4-5.0); Alk Phos 103 U/L (50-136); Anion Gap 3 mmol/L (6-16); Aspartate Aminotrans (AST/SGOT 112 U/L (12-37); Bilirubin, Total 0.2 mg/dL (0.1-1.0); Blood Urea Nitrogen 17 mg/dL (8-24); Bun/Creatinine Ratio 26.7 (12.0-20.0); CO2, Blood 26 mmol/L (21-32); Calcium, Blood 8.2 mg/dL (8.5-10.1); Chloride, Blood 108 mmol/L (98-108); Creatinine, Blood 0.64 mg/dL (0.40-1.00); Globulin, Blood 3.4 g/dL (2.2-4.0); Glomerular Filtration Rate >60 (60-); Glucose, Blood 179 mg/dL (70-99); Potassium, Blood 4.2 mmol/L (3.5-5.5); Sodium, Blood 137 mmol/L (136-145); Total Protein, Blood 6.7 g/dL (6.4-8.2); Troponin I <0.015 ng/mL (0.000-0.040)
[2019-05-06] MEDS ORDERED: Zofran4 MG PO (20:00)
[2019-05-06] MEDS ORDERED: Desyrel150 MG PO (20:01)
[2019-05-06] MEDS ORDERED: Prozac40 MG PO (20:01)
[2019-05-06 21:28] LABS: Troponin I <0.015 ng/mL (0.000-0.040)
== END 2019-05-06 23:17 | disposition home or self-care (01) ==
LOC: ER 17:32
PROVIDERS: Emergency Medicine
DX: E03.9 Hypothyroidism, unspecified (principal); R00.2 Palpitations; Z88.1 Allergy status to other antibiotic agents; Z79.899 Other long term (current) drug therapy; E11.9 Type 2 diabetes mellitus without complications
CPT/HCPCS: 36415; 80053; 83880; 84443; 84484; 85025; 93005; 93010; 99285-25

== ENCOUNTER 2019-05-14 06:02 | Day surgery (SDC) | payer OTHER ==
[~2019-05-14] VITALS: Ht 162.6 cm; Wt 88.9 kg
[~2019-05-14 06:02] MED LIST changes: +Desyrel150 MG PO; +Prozac40 MG PO; +Zofran4 MG PO
--- NOTE | 2019-05-14 06:25 | NUR ---
History, Chart, Medications and Allergies reviewed before start of procedure. Patient confirms NPO status and agrees with scheduled surgery. Patient States Post-Procedure ride home has been arranged.
--- NOTE | 2019-05-14 07:12 | NUR ---
Lungs clear T/O to Auscultation. PT HAS 22 G IV RIGHT [facility] THAT WAS WRAPPED IN [place]. FLUSHES WELL.
--- NOTE | 2019-05-14 09:47 | NUR ---
DRESSING CLEAN, DRY & INTACT.
--- NOTE | 2019-05-14 10:24 | NUR ---
PATIENT UP TO DRESS WITH DAUGHTER'S ASSISTANCE, AT BASELINE, DID WELL. PATIENT D/C IN STABLE CONDITION VIA PERSONAL W/C TO DAUGHTER'S CARE.
--- NOTE | 2019-05-14 10:26 | NUR ---
IV REMOVED THAT HAD BEEN PLACED AT LAST TREATMENT, 22 G IN RIGHT WRIST/FOREARM AREA. SITE WITHOUT REDNESS AT THE TIME DC'D.
== END 2019-05-14 10:28 | disposition home or self-care (01) ==
LOC: ORSCMMR 06:02 → ORD 07:30 → ORSCMMR 07:30
PROVIDERS: Surgery
PROC: 0JH60WZ Insertion of Totally Implantable Vascular Access Device into Chest Subcutaneous Tissue and Fascia, Open Approach (ICD-10-PCS; principal; 2019-05-14 07:30)
DX: C54.1 Malignant neoplasm of endometrium (principal); J45.909 Unspecified asthma, uncomplicated; E11.9 Type 2 diabetes mellitus without complications; E05.90 Thyrotoxicosis, unspecified without thyrotoxic crisis or storm; Z79.899 Other long term (current) drug therapy
CPT/HCPCS: 77001; A9270-GY; C1788; J0690; J1100; J1642; J2250; J2370; J2405; J2704; J7120

== ENCOUNTER 2019-12-06 08:28 | Day surgery (SDC) | payer OTHER | END 2019-12-06 22:54 | disposition home or self-care (01) | LOC: WOUND 08:28 | DX: T81.31XD Disruption of external operation (surgical) wound, not elsewhere classified, subsequent encounter (principal); E11.9 Type 2 diabetes mellitus without complications; E66.9 Obesity, unspecified; J45.909 Unspecified asthma, uncomplicated; E05.90 Thyrotoxicosis, unspecified without thyrotoxic crisis or storm; Z98.84 Bariatric surgery status; Z68.29 Body mass index [BMI] 29.0-29.9, adult | CPT/HCPCS: G0463 ==

== ENCOUNTER 2019-12-13 00:37 | Day surgery (SDC) | payer OTHER | END 2019-12-13 22:39 | disposition home or self-care (01) | LOC: WOUND 00:37 | DX: T81.31XD Disruption of external operation (surgical) wound, not elsewhere classified, subsequent encounter (principal); J45.909 Unspecified asthma, uncomplicated; E66.9 Obesity, unspecified; E11.9 Type 2 diabetes mellitus without complications; Z98.84 Bariatric surgery status; Z68.29 Body mass index [BMI] 29.0-29.9, adult; Z79.899 Other long term (current) drug therapy | CPT/HCPCS: G0463 ==

== ENCOUNTER 2020-01-26 17:46 | Emergency (ER) | payer OTHER ==
[~2020-01-26] VITALS: Ht 162.6 cm; Wt 83.0 kg
[~2020-01-26 17:46] MED LIST changes: +HYDR1TAB94 PO; +METF500 PO; +OMEP20ER PO; +PARO20 PO; +TRAM50 PO
[2020-01-26] MEDS ORDERED: Midodrine HCl5 MG PO (18:09)
[2020-01-26] MEDS ORDERED: CYCL10 PO (18:40)
== END 2020-01-26 18:53 | disposition home or self-care (01) ==
LOC: ER 17:46
DX: S16.1XXA Strain of muscle, fascia and tendon at neck level, initial encounter (principal); E11.9 Type 2 diabetes mellitus without complications; D64.9 Anemia, unspecified; E03.9 Hypothyroidism, unspecified; E66.01 Morbid (severe) obesity due to excess calories; Z68.31 Body mass index [BMI] 31.0-31.9, adult; Z88.1 Allergy status to other antibiotic agents; Z79.899 Other long term (current) drug therapy; Z79.84 Long term (current) use of oral hypoglycemic drugs; V49.59XA Passenger injured in collision with other motor vehicles in traffic accident, initial encounter
CPT/HCPCS: 72040; 99284-25

== ENCOUNTER 2020-02-05 00:12 | Day surgery (SDC) | payer OTHER ==
[~2020-02-05 00:12] MED LIST changes: +CYCL10 PO; +Midodrine HCl5 MG PO
== END 2020-02-05 22:41 | disposition home or self-care (01) ==
LOC: ATC 00:12
DX: D50.9 Iron deficiency anemia, unspecified (principal); C54.1 Malignant neoplasm of endometrium; E11.9 Type 2 diabetes mellitus without complications; J45.909 Unspecified asthma, uncomplicated; Z79.84 Long term (current) use of oral hypoglycemic drugs; Z79.899 Other long term (current) drug therapy; Z88.1 Allergy status to other antibiotic agents
CPT/HCPCS: 99211

== ENCOUNTER 2020-02-12 00:27 | Day surgery (SDC) | payer OTHER | END 2020-02-12 22:51 | disposition home or self-care (01) | LOC: WOUND 00:27 | DX: T81.31XD Disruption of external operation (surgical) wound, not elsewhere classified, subsequent encounter (principal); J45.909 Unspecified asthma, uncomplicated; E11.9 Type 2 diabetes mellitus without complications; E66.9 Obesity, unspecified; Z88.1 Allergy status to other antibiotic agents; E89.0 Postprocedural hypothyroidism; Z68.32 Body mass index [BMI] 32.0-32.9, adult; Z79.899 Other long term (current) drug therapy; Z79.84 Long term (current) use of oral hypoglycemic drugs | CPT/HCPCS: G0463 ==

== ENCOUNTER 2020-02-12 13:28 | Day surgery (SDC) | payer OTHER | END 2020-02-12 15:20 | disposition home or self-care (01) | LOC: ATC 13:28 | DX: D50.9 Iron deficiency anemia, unspecified (principal); J45.909 Unspecified asthma, uncomplicated; E11.9 Type 2 diabetes mellitus without complications; E05.90 Thyrotoxicosis, unspecified without thyrotoxic crisis or storm; Z79.899 Other long term (current) drug therapy; Z88.1 Allergy status to other antibiotic agents | CPT/HCPCS: 99211 ==

== ENCOUNTER 2020-02-20 00:09 | Day surgery (SDC) | payer OTHER | END 2020-02-20 11:26 | disposition home or self-care (01) | LOC: ATC 00:09 | DX: D50.9 Iron deficiency anemia, unspecified (principal); E11.9 Type 2 diabetes mellitus without complications; J45.909 Unspecified asthma, uncomplicated; E03.9 Hypothyroidism, unspecified; Z79.899 Other long term (current) drug therapy; Z88.1 Allergy status to other antibiotic agents | CPT/HCPCS: 99211 ==

== ENCOUNTER 2020-02-20 00:17 | Day surgery (SDC) | payer OTHER | END 2020-02-20 23:17 | disposition home or self-care (01) | LOC: WOUND 00:17 | DX: T81.31XD Disruption of external operation (surgical) wound, not elsewhere classified, subsequent encounter (principal); E11.9 Type 2 diabetes mellitus without complications; J45.909 Unspecified asthma, uncomplicated; E66.9 Obesity, unspecified; Z68.32 Body mass index [BMI] 32.0-32.9, adult; Z79.899 Other long term (current) drug therapy; Z79.84 Long term (current) use of oral hypoglycemic drugs | CPT/HCPCS: G0463 ==

== ENCOUNTER 2020-02-27 00:20 | Day surgery (SDC) | payer OTHER ==
[~2020-02-27 00:20] MED LIST changes: -Cipro500 MG PO; -FERROUS GLUCON324 MG PO
[2020-02-28] MEDS ORDERED: Cipro500 MG PO (23:16)
[2020-03-02] MEDS ORDERED: CYCL10 PO (10:33)
[2020-03-02] MEDS ORDERED: FERROUS GLUCON324 MG PO (10:35)
[2020-03-02] MEDS ORDERED: CIPR500 PO (10:35)
[2020-03-02] MEDS ORDERED: ALPR1 PO (10:36)
== END 2020-02-27 09:52 | disposition home or self-care (01) ==
LOC: ATC 00:20
DX: D50.9 Iron deficiency anemia, unspecified (principal); J45.909 Unspecified asthma, uncomplicated; E11.9 Type 2 diabetes mellitus without complications; E05.90 Thyrotoxicosis, unspecified without thyrotoxic crisis or storm; Z79.899 Other long term (current) drug therapy; Z88.1 Allergy status to other antibiotic agents
CPT/HCPCS: 99211

== ENCOUNTER 2020-02-27 00:35 | Day surgery (SDC) | payer OTHER ==
[2020-02-28] MEDS ORDERED: Cipro500 MG PO (23:16)
[2020-03-02] MEDS ORDERED: CYCL10 PO (10:33)
[2020-03-02] MEDS ORDERED: CIPR500 PO (10:35)
[2020-03-02] MEDS ORDERED: FERROUS GLUCON324 MG PO (10:35)
[2020-03-02] MEDS ORDERED: ALPR1 PO (10:36)
== END 2020-02-27 22:34 | disposition home or self-care (01) ==
LOC: WOUND 00:35
DX: T81.31XD Disruption of external operation (surgical) wound, not elsewhere classified, subsequent encounter (principal); E11.9 Type 2 diabetes mellitus without complications; E05.90 Thyrotoxicosis, unspecified without thyrotoxic crisis or storm; D63.8 Anemia in other chronic diseases classified elsewhere; J45.909 Unspecified asthma, uncomplicated; Z98.84 Bariatric surgery status
CPT/HCPCS: G0463

== ENCOUNTER → 2020-02-27 | Outpatient (CLI) | payer OTHER ==
[~2020-02-27] MED LIST changes: +Cipro500 MG PO; +FERROUS GLUCON324 MG PO
[2020-02-27 16:17] LABS: BASOPHILS ABSOLUTE AUTO 0.02 K/mm3 (0.00-0.23); BASOPHILS PERCENT AUTO 1 % (0-2); EOSINOPHILS ABSOLUTE AUTO 0.11 K/mm3 (0.00-0.68); EOSINOPHILS PERCENT AUTO 3 % (0-6); Hematocrit 34.2 % (33.0-51.0); Hemoglobin 10.4 g/dL (11.5-16.0); IMMATURE GRAN ABSOLUTE AUTO 0.04 K/mm3 (0.00-0.10); IMMATURE GRAN PERCENT AUTO 1 % (0-1); LYMPHOCYTES ABSOLUTE AUTO 0.51 K/mm3 (0.84-5.20); LYMPHOCYTES PERCENT AUTO 15 % (21-46); MONOCYTES ABSOLUTE AUTO 0.36 K/mm3 (0.16-1.47); MONOCYTES PERCENT AUTO 11 % (4-13); Mean Corpuscular HGB 29.7 pg (26.0-34.0); Mean Corpuscular HGB Conc 30.4 g/dL (31.5-36.5); Mean Corpuscular Volume 98 fL (80-100); NEUTROPHILS PERCENT AUTO 69 % (41-73); Platelet Count 193 K/mm3 (150-400); RDW Coefficient Variation 15.3 % (11.7-14.2); RDW Standard Deviation 54.9 fL (35.1-46.3); White Blood Cell Count 3.34 K/mm3 (4.00-11.30)
[2020-02-27 16:33] LABS: Alanine Aminotransfer (ALT/SGP 36 U/L (12-78); Albumin, Blood 3.4 g/dL (3.4-5.0); Albumin/Globulin Ratio 1.1 (0.8-1.8); Alk Phos 69 U/L (50-136); Anion Gap 4 mmol/L (6-16); Aspartate Aminotrans (AST/SGOT 19 U/L (12-37); Bilirubin, Total 0.2 mg/dL (0.1-1.0); Blood Urea Nitrogen 25 mg/dL (8-24); Bun/Creatinine Ratio 31.6 (12.0-20.0); CO2, Blood 29 mmol/L (21-32); Calcium, Blood 8.2 mg/dL (8.5-10.1); Chloride, Blood 108 mmol/L (98-108); Creatinine, Blood 0.79 mg/dL (0.40-1.00); Glomerular Filtration Rate >60 (60-); Glucose, Blood 133 mg/dL (70-99); Potassium, Blood 3.9 mmol/L (3.5-5.5); Sodium, Blood 141 mmol/L (136-145); Total Protein, Blood 6.4 g/dL (6.4-8.2)
[2020-02-27 16:34] LABS: Percent Saturation 23.6 % (15.0-50.0)
== END | disposition home or self-care (01) ==
LOC: LAB SHORT 14:51 → LAB 14:51
PROVIDERS: Family Medicine
DX: K95.89 Other complications of other bariatric procedure (principal); D64.9 Anemia, unspecified; E56.9 Vitamin deficiency, unspecified; D50.9 Iron deficiency anemia, unspecified; E11.40 Type 2 diabetes mellitus with diabetic neuropathy, unspecified
CPT/HCPCS: 80053; 82728; 83540; 83550; 85025

== ENCOUNTER 2020-02-28 19:47 | Emergency (ER) | payer OTHER ==
[~2020-02-28] VITALS: Ht 162.6 cm; Wt 85.7 kg
[2020-02-28 20:32] LABS: BASOPHILS ABSOLUTE AUTO 0.03 K/mm3 (0.00-0.23); BASOPHILS PERCENT AUTO 1 % (0-2); EOSINOPHILS ABSOLUTE AUTO 0.15 K/mm3 (0.00-0.68); EOSINOPHILS PERCENT AUTO 4 % (0-6); Hematocrit 34.5 % (33.0-51.0); Hemoglobin 10.8 g/dL (11.5-16.0); IMMATURE GRAN ABSOLUTE AUTO 0.03 K/mm3 (0.00-0.10); IMMATURE GRAN PERCENT AUTO 1 % (0-1); LYMPHOCYTES PERCENT AUTO 14 % (21-46); MONOCYTES ABSOLUTE AUTO 0.35 K/mm3 (0.16-1.47); MONOCYTES PERCENT AUTO 8 % (4-13); Mean Corpuscular HGB 29.7 pg (26.0-34.0); Mean Corpuscular HGB Conc 31.3 g/dL (31.5-36.5); NEUTROPHILS ABSOLUTE AUTO 3.06 K/mm3 (1.96-9.15); NEUTROPHILS PERCENT AUTO 73 % (41-73); NRBC ABSOLUTE 0.02 K/mm3 (0.00-0.02); NRBC Auto 0.5 /100 WBC (0.0-0.2); RDW Coefficient Variation 15.2 % (11.7-14.2); RDW Standard Deviation 53.5 fL (35.1-46.3); Red Blood Cell Count 3.64 M/mm3 (3.80-5.20); White Blood Cell Count 4.22 K/mm3 (4.00-11.30)
[2020-02-28 20:35] LABS: Mean Corpuscular Volume 95 fL (80-100); Mean Platelet Volume 10.1 fL (9.1-12.4); Platelet Count 137 K/mm3 (150-400)
[2020-02-28 20:43] LABS: Alanine Aminotransfer (ALT/SGP 48 U/L (12-78); Albumin, Blood 3.4 g/dL (3.4-5.0); Albumin/Globulin Ratio 1.2 (0.8-1.8); Alk Phos 78 U/L (50-136); Anion Gap 6 mmol/L (6-16); Aspartate Aminotrans (AST/SGOT 34 U/L (12-37); Bilirubin, Total 0.3 mg/dL (0.1-1.0); Blood Urea Nitrogen 41 mg/dL (8-24); Bun/Creatinine Ratio 40.6 (12.0-20.0); CO2, Blood 26 mmol/L (21-32); Chloride, Blood 106 mmol/L (98-108); Creatinine, Blood 1.01 mg/dL (0.40-1.00); Globulin, Blood 2.9 g/dL (2.2-4.0); Glomerular Filtration Rate >60 (60-); Glucose, Blood 86 mg/dL (70-99); Sodium, Blood 138 mmol/L (136-145); Total Protein, Blood 6.3 g/dL (6.4-8.2)
[2020-02-28 21:37] LABS: Source, Urine Clean Catch
[2020-02-28 21:40] LABS: Bilirubin, Urine Neg (Neg); Blood, Urine 1+ (Neg); Glucose Qualitative, Urine Neg (Neg); Ketones, Urine Neg (Neg); Leukocyte Esterase, Urine 3+ (Neg); Nitrite, Urine Neg (Neg); Protein, Urine Neg (Neg); Urobilinogen, Urine NORM (Normal)
[2020-02-28 21:47] LABS: Amorphous Light (0-Heavy); Appearance, Urine Hazy (Clear); Bacteria Mod /hpf; Color, Urine Yellow (P-Yellow); Mucus Light (0-Heavy); Red Blood Cells, Urine Rare /hpf (0-2); Squamous Epithelial Cells Few /hpf (Few); White Blood Cells, Urine TNTC /hpf (0-5)
[2020-02-28] MEDS ORDERED: Cipro500 MG PO (23:16)
[2020-03-02] MEDS ORDERED: CYCL10 PO (10:33)
[2020-03-02] MEDS ORDERED: CIPR500 PO (10:35)
[2020-03-02] MEDS ORDERED: FERROUS GLUCON324 MG PO (10:35)
[2020-03-02] MEDS ORDERED: ALPR1 PO (10:36)
== END 2020-02-29 00:45 | disposition home or self-care (01) ==
LOC: ER 19:47
PROVIDERS: Emergency Medicine
DX: N39.0 Urinary tract infection, site not specified (principal); Z88.1 Allergy status to other antibiotic agents; Z79.899 Other long term (current) drug therapy; Z79.84 Long term (current) use of oral hypoglycemic drugs; E11.9 Type 2 diabetes mellitus without complications; D50.9 Iron deficiency anemia, unspecified; E66.01 Morbid (severe) obesity due to excess calories; Z68.32 Body mass index [BMI] 32.0-32.9, adult
CPT/HCPCS: 76705; 80053; 81001; 83690; 85025; 87086; 96365; 96375; 99284-25; A9270; J1885; J2543; J7030

== ENCOUNTER 2020-03-09 00:11 | Day surgery (SDC) | payer OTHER ==
[~2020-03-09 00:11] MED LIST changes: +Cipro500 MG PO; +FERROUS GLUCON324 MG PO
[2020-03-11] MEDS ORDERED: CYAN1000I IM (20:15)
[2020-03-11] MEDS ORDERED: OMEPRAZOLE MAGN20 MG PO (20:15)
[2020-03-11] MEDS ORDERED: Kristalose20 GM PO (21:26)
== END 2020-03-09 15:35 | disposition home or self-care (01) ==
LOC: ATC 00:11
DX: D50.9 Iron deficiency anemia, unspecified (principal); J45.909 Unspecified asthma, uncomplicated; E11.9 Type 2 diabetes mellitus without complications; E05.90 Thyrotoxicosis, unspecified without thyrotoxic crisis or storm; Z79.899 Other long term (current) drug therapy; Z88.1 Allergy status to other antibiotic agents
CPT/HCPCS: 99211

== ENCOUNTER 2020-03-10 08:31 | Day surgery (SDC) | payer OTHER ==
[~2020-03-10] VITALS: Ht 162.6 cm; Wt 89.1 kg
--- NOTE | 2020-03-10 10:24 | NUR ---
History, Chart, Medications and Allergies reviewed before start of procedure. Lungs clear T/O to Auscultation. Patient confirms NPO status and agrees with scheduled surgery. Pre-Op teaching done. Pt verbalizes understanding. Patient States Post-Procedure ride home has been arranged. 2 IV ATTEMPTS BY ARYA Austin RN.
--- NOTE | 2020-03-10 12:02 | NUR ---
03/10/20 1202 Edson Vasquez CASE ABORTED BY DR VILLALBA PRIOR TO INCISION.
--- NOTE | 2020-03-10 13:05 | NUR ---
PT SURGERY GOT CANCELLED PER DR VILLALBA. DR VILLALBA AT BEDSIDE TALKING WITH PATIENT. VERBAL INSTRUCTIONS GIVEN TO PATIENT THAT DR VILLALBA OFFICE WILL CALL AND NO DRIVING FOR 24 HRS DUE TO SEDATION THAT WAS GIVEN. PT UNDERSTANDS INSTRUCTIONS.
[2020-03-11] MEDS ORDERED: OMEPRAZOLE MAGN20 MG PO (20:15)
[2020-03-11] MEDS ORDERED: CYAN1000I IM (20:15)
[2020-03-11] MEDS ORDERED: Kristalose20 GM PO (21:26)
== END 2020-03-10 23:12 | disposition home or self-care (01) ==
LOC: ORSCMMR 08:31 → ORD 10:00 → ORSCMMR 10:00 → ORD 03-17 09:45
DX: M16.12 Unilateral primary osteoarthritis, left hip (principal); Z53.9 Procedure and treatment not carried out, unspecified reason; E11.9 Type 2 diabetes mellitus without complications; Z79.899 Other long term (current) drug therapy
CPT/HCPCS: 82947; J0171; J0735; J1100; J1885; J2250; J2405; J2704; J2710; J2795; J3010; J7120

== ENCOUNTER 2020-03-31 01:17 | Day surgery (SDC) | payer OTHER ==
[~2020-03-31 01:17] MED LIST changes: +CYAN1000I IM; +Kristalose20 GM PO; +OMEPRAZOLE MAGN20 MG PO
--- NOTE | 2020-03-31 10:01 | NUR ---
IV PLACED FOR MULTIPLE LAB DRAWS FOR ACTH STIM TEST. PT REPORTS SHE IS A DIFFICULT IV START. FIRST ATTEMPT AT IV START PRIOR TO INJECTION OF CORTROSYN THIS FLAT SPRING ASSEMBLER WAS ABLE TO OBTAIN BLOOD BUT UNABLE TO GET THE CANNULA TO ADVANCE INTO THE VEIN. SECOND IV ATTEMPT WAS SUCCESSFUL IN THE LH AT 0915. LABS DRAWN AND IV FLUSHED AND LEFT IN PLACE A SL. LABS ABLE TO BE DRAWN THROUGH THE SL AFTER 5 ML WASTED AT 0946. PT TOLERATED INJECTION AND IV STARTS WELL. IV DC'D AND PT DC'D TO HOME AT 0948.
== END 2020-03-31 09:48 | disposition home or self-care (01) ==
LOC: ATC 01:17
DX: I95.9 Hypotension, unspecified (principal); C54.1 Malignant neoplasm of endometrium; Z88.1 Allergy status to other antibiotic agents
CPT/HCPCS: 80400; 82533; 96372; J0834

== ENCOUNTER 2020-10-28 15:07 | Observation (INO) | payer MEDICARE, OTHER ==
[~2020-10-28] VITALS: Ht 162.6 cm; Wt 92.3 kg
[2020-10-28 15:37] LABS: Hematocrit 36.3 % (33.0-51.0); Hemoglobin 11.7 g/dL (11.5-16.0); Mean Corpuscular HGB Conc 32.2 g/dL (31.5-36.5); Mean Corpuscular Volume 102 fL (80-100); Mean Platelet Volume 9.5 fL (9.1-12.4); Platelet Count 193 K/mm3 (150-400); RDW Coefficient Variation 13.8 % (11.7-14.2); RDW Standard Deviation 52.2 fL (35.1-46.3); Red Blood Cell Count 3.55 M/mm3 (3.80-5.20); White Blood Cell Count 2.48 K/mm3 (4.00-11.30)
[2020-10-28 16:00] LABS: Albumin, Blood 3.6 g/dL (3.4-5.0); Bilirubin, Total 0.4 mg/dL (0.1-1.0); Bun/Creatinine Ratio 20.4 (12.0-20.0); Calcium, Blood 8.1 mg/dL (8.5-10.1); Creatinine, Blood 1.62 mg/dL (0.40-1.00); Globulin, Blood 3.5 g/dL (2.2-4.0); Potassium, Blood 3.9 mmol/L (3.5-5.5); Total Protein, Blood 7.1 g/dL (6.4-8.2)
[2020-10-28 16:06] LABS: BAND PERCENT MAN 7 % (0-8); BASOPHILS ABSOLUTE MAN 0.02 K/mm3 (0.00-0.23); BASOPHILS PERCENT MAN 1 % (0-2); EOSINOPHILS ABSOLUTE MAN 0.27 K/mm3 (0.00-0.68); EOSINOPHILS PERCENT MAN 11 % (0-6); LYMPHOCYTES ABSOLUTE MAN 0.69 K/mm3 (0.84-5.20); LYMPHOCYTES PERCENT MAN 28 % (21-46); MONOCYTES ABSOLUTE MAN 0.19 K/mm3 (0.16-1.47); MONOCYTES PERCENT MAN 8 % (4-13); NEUTROPHILS ABSOLUTE MAN 1.28 K/mm3 (1.96-9.15); SEG NEUTROPHILS PERCENT MAN 45 % (41-73); TOTAL CELLS COUNTED 100
[2020-10-28] MEDS ORDERED: METF500 PO (18:21)
[2020-10-28] MEDS ORDERED: FLUVOXAMINE MA100 M2 PO (18:22)
[2020-10-28] MEDS ORDERED: VITAMIN D5000 UNIT PO (19:57)
[2020-10-28] MEDS ORDERED: HYDROCODONE-AC1 EA11 PO (20:20)
[2020-10-28 21:30] LABS: Appearance, Urine Hazy (Clear); Bilirubin, Urine Neg (Neg); Blood, Urine Neg (Neg); Color, Urine Yellow (P-Yellow); Glucose Qualitative, Urine Neg (Neg); Ketones, Urine 1+ (Neg); Leukocyte Esterase, Urine Neg (Neg); Nitrite, Urine Neg (Neg); Protein, Urine 1+ (Neg); Urobilinogen, Urine NORM (Normal)
[2020-10-28 21:42] LABS: Amorphous Light (0-Heavy); Bacteria Rare /hpf; Red Blood Cells, Urine Not Seen /hpf (0-2); Squamous Epithelial Cells Rare /hpf (Few); White Blood Cells, Urine Rare /hpf (0-5)
[2020-10-29 05:20] LABS: BASOPHILS ABSOLUTE AUTO 0.01 K/mm3 (0.00-0.23); BASOPHILS PERCENT AUTO 0 % (0-2); Hematocrit 30.7 % (33.0-51.0); Hemoglobin 9.9 g/dL (11.5-16.0); Mean Corpuscular HGB 32.4 pg (26.0-34.0); Mean Corpuscular HGB Conc 32.2 g/dL (31.5-36.5); Mean Corpuscular Volume 100 fL (80-100); Mean Platelet Volume 9.4 fL (9.1-12.4); Platelet Count 167 K/mm3 (150-400); RDW Coefficient Variation 13.8 % (11.7-14.2); RDW Standard Deviation 50.3 fL (35.1-46.3); Red Blood Cell Count 3.06 M/mm3 (3.80-5.20)
[2020-10-29 05:26] LABS: EOSINOPHILS ABSOLUTE AUTO 0.28 K/mm3 (0.00-0.68); EOSINOPHILS PERCENT AUTO 12 % (0-6); IMMATURE GRAN ABSOLUTE AUTO 0.01 K/mm3 (0.00-0.10); IMMATURE GRAN PERCENT AUTO 0 % (0-1); LYMPHOCYTES ABSOLUTE AUTO 0.68 K/mm3 (0.84-5.20); LYMPHOCYTES PERCENT AUTO 28 % (21-46); MONOCYTES ABSOLUTE AUTO 0.37 K/mm3 (0.16-1.47); MONOCYTES PERCENT AUTO 15 % (4-13); NEUTROPHILS ABSOLUTE AUTO 1.05 K/mm3 (1.96-9.15); NEUTROPHILS PERCENT AUTO 44 % (41-73)
--- NOTE | 2020-10-29 05:31 | NUR ---
E COMMERCE ANALYST SUMMARY PT ADMITTED FROM ED THIS SHIFT AT 2118, RECEIVED REPORT FROM CAMILA MIRANDA. PT A&OX4, ABLE TO MAKE NEEDS KNOWN, PLEASANT AND COOPERATIVE TO CARE. PT MEDICATED FOR GENERALIZED BODY PAIN PER EMAR. PT IS 1-2P ASSIST W/ BED MOBILITY AND TRANSFERS. CONTINENT OF URINE, DENIES DYSURIA. PT NO C/O CP, SOB OR N&V. ON TELE SR 70's PER DIE CASTING MACHINE OPERATOR. PT REPORTED THAT SHE HAD MULTIPLE EPISODES OF DIARRHEA UPON ADMISSION, AWAITING STOOL SAMPLE. PT CALM AND RESTED IN BED T/O SHIFT. BED AT LOWEST POSITION. CALL LIGHT WITHIN REACH.
[2020-10-29 05:41] LABS: Bilirubin, Total 0.8 mg/dL (0.1-1.0); Calcium, Blood 7.4 mg/dL (8.5-10.1); Creatinine, Blood 1.27 mg/dL (0.40-1.00); Globulin, Blood 2.9 g/dL (2.2-4.0); Potassium, Blood 3.3 mmol/L (3.5-5.5); Total Protein, Blood 5.9 g/dL (6.4-8.2)
--- NOTE | 2020-10-29 11:00 | NUR ---
PT HAD A FUL BEDBATH WITH HAIR WASH, REPOSITIONED TO SITTING UP HIPS FLOATED MAT IN HER HAIR WAS WASHED AND COMBED OUT. PT CAME TO DO BED EXERCISES WITH THE PT. PT VERY TIRED AFTER ALL THE ACTIVITY. PHYSICAL THERAPY ARE CONTINUEING TO RECOMEND INPATIENT REHAB FOR THIS PT.
--- NOTE | 2020-10-29 17:02 | NUR ---
SHIFT SUMMARY- PT ALERT AND ORIENTED 1PA WITH A WHEELCHAIR TO THE BATHROOM. BP RUNNING LOW DR AWARE STARTED MIDODRIENE TODAY. PT WAS ISO TO R/O C-DIFF. ORDER DC'D FOR NO STOOL, ORDER REPLACED LATER WHEN THE PT PASSED LIQUID STOOL. PT IN ENTERIC PRECAUTIONS, C-DIFF RESULTS ARE PENDING. PT HAS LOWER QUADRANT PAIN AND BILATERAL HIP PAIN. MEDICATED WITH NORCO AT THE PT HOME DOSE. WILL CTM AND PASS ON TO NIGHT RN IN BEDSIDE REPORT.
--- NOTE | 2020-10-30 04:10 | NUR ---
DIRECTOR E LEARNING SUMMARY PT A&OX4, ABLE TO MAKE NEEDS KNOWN. PLEASANT AND COOPERATIVE TO CARE. MEDICATED FOR PAIN PER EMAR. NO C/O CP, SOB, OR N&V. PT REQ 1PA TO THE BATHROOM, PT AMBULATES USING WC. CONT ON ENTERIC PRECAUTIONS, CDIFF RESULTS PENDING. PT CALM AND RESTED IN BED T/O SHIFT. CALLS APPROPRIATELY. BED AT LOWEST POSITION. CALL LIGHT WITHIN REACH.
[2020-10-30 05:02] LABS: Hemoglobin 9.9 g/dL (11.5-16.0); Mean Corpuscular HGB 32.5 pg (26.0-34.0); Mean Corpuscular Volume 98 fL (80-100); Mean Platelet Volume 9.2 fL (9.1-12.4); Platelet Count 168 K/mm3 (150-400); RDW Coefficient Variation 13.9 % (11.7-14.2); RDW Standard Deviation 50.6 fL (35.1-46.3); Red Blood Cell Count 3.05 M/mm3 (3.80-5.20)
[2020-10-30 05:41] LABS: BAND PERCENT MAN 4 % (0-8); BASOPHILS PERCENT MAN 0 % (0-2); EOSINOPHILS ABSOLUTE MAN 0.28 K/mm3 (0.00-0.68); EOSINOPHILS PERCENT MAN 11 % (0-6); LYMPHOCYTES ABSOLUTE MAN 0.65 K/mm3 (0.84-5.20); LYMPHOCYTES PERCENT MAN 25 % (21-46); METAMYELOCYTE ABSOLUTE MAN 0.02 K/mm3 (0.00-0.00); METAMYELOCYTE PERCENT MAN 1 % (0-0); MONOCYTES ABSOLUTE MAN 0.33 K/mm3 (0.16-1.47); MONOCYTES PERCENT MAN 13 % (4-13); SEG NEUTROPHILS PERCENT MAN 46 % (41-73); TOTAL CELLS COUNTED 100
[2020-10-30 05:42] LABS: Albumin/Globulin Ratio 1.2 (0.8-1.8); Bilirubin, Total 0.4 mg/dL (0.1-1.0); Bun/Creatinine Ratio 13.9 (12.0-20.0); Calcium, Blood 7.4 mg/dL (8.5-10.1); Creatinine, Blood 1.08 mg/dL (0.40-1.00); Globulin, Blood 2.6 g/dL (2.2-4.0); Potassium, Blood 3.6 mmol/L (3.5-5.5); Total Protein, Blood 5.6 g/dL (6.4-8.2)
[2020-10-30 08:48] LABS: C DIFFICILE DNA NEGATIVE (Negative)
--- NOTE | 2020-10-30 18:05 | NUR ---
PT NOT TOLERATING FULL LIQUID DIET WELL, EXPERIENCING NAUSEA. DIET CHANGED TO CLEAR LIQUIDS, WILL MONITOR. PT SUFFERS FROM CHRONIC PAIN AND WAS MEDICATED WITH 1 NORCO X2 WITH GOOD EFFECT. GARRY IV ACCIDENTLY PULLED BY PT, NEW IV TO LFA PLACED BY JASON DAVIDSON RN, PT TOLERATED WELL. NO ACUTE CHANGES NOTED THIS SHIFT, WILL CONTINUE TO MONITOR AND REPORT TO ONCOMING RN
--- NOTE | 2020-10-31 04:32 | NUR ---
HAND PRESSER SUMMARY PT A&OX4, ABLE TO MAKE NEEDS KNOWN. PLEASANT AND COOPERATIVE TO CARE. MEDICATED FOR PAIN PER EMAR. NO C/O CP, SOB OR N&V. PT ON TELE NSR 60's. PT ALSO MEDICATED FOR NAUSEA THIS SHIFT. 1P ASSIST W/C TO THE BATHROOM. PT CALM AND RESTED IN BED T/O SHIFT. BED AT LOWEST POSITION. CALL LIGHT WITHIN REACH.
[2020-10-31 09:23] LABS: BASOPHILS ABSOLUTE AUTO 0.01 K/mm3 (0.00-0.23); BASOPHILS PERCENT AUTO 0 % (0-2); EOSINOPHILS ABSOLUTE AUTO 0.21 K/mm3 (0.00-0.68); EOSINOPHILS PERCENT AUTO 6 % (0-6); Hematocrit 29.9 % (33.0-51.0); Hemoglobin 9.8 g/dL (11.5-16.0); IMMATURE GRAN ABSOLUTE AUTO 0.09 K/mm3 (0.00-0.10); IMMATURE GRAN PERCENT AUTO 3 % (0-1); LYMPHOCYTES ABSOLUTE AUTO 0.59 K/mm3 (0.84-5.20); LYMPHOCYTES PERCENT AUTO 17 % (21-46); MONOCYTES ABSOLUTE AUTO 0.31 K/mm3 (0.16-1.47); MONOCYTES PERCENT AUTO 9 % (4-13); Mean Corpuscular HGB 32.6 pg (26.0-34.0); Mean Corpuscular HGB Conc 32.8 g/dL (31.5-36.5); Mean Corpuscular Volume 99 fL (80-100); Mean Platelet Volume 9.5 fL (9.1-12.4); NEUTROPHILS PERCENT AUTO 65 % (41-73); Platelet Count 155 K/mm3 (150-400); RDW Standard Deviation 51.3 fL (35.1-46.3); Red Blood Cell Count 3.01 M/mm3 (3.80-5.20); White Blood Cell Count 3.41 K/mm3 (4.00-11.30)
[2020-10-31 09:36] LABS: Albumin, Blood 2.9 g/dL (3.4-5.0); Anion Gap 7 mmol/L (6-16); Blood Urea Nitrogen 9 mg/dL (8-24); Bun/Creatinine Ratio 9.6 (12.0-20.0); CO2, Blood 21 mmol/L (21-32); Calcium, Blood 7.5 mg/dL (8.5-10.1); Chloride, Blood 118 mmol/L (98-108); Creatinine, Blood 0.94 mg/dL (0.40-1.00); Glomerular Filtration Rate >60 (60-); Glucose, Blood 150 mg/dL (70-99); Phosphorus, Blood 1.4 mg/dL (2.5-4.9); Potassium, Blood 3.5 mmol/L (3.5-5.5); Sodium, Blood 146 mmol/L (136-145)
[2020-10-31] MEDS ORDERED: VISBIOME 112.51 EACH PO (12:21)
[2020-10-31] MEDS ORDERED: LEVO750 PO (12:22)
[2020-10-31] MEDS ORDERED: Midodrine HCl2.5 MG PO (12:22)
[2020-10-31] MEDS ORDERED: [UNRECOGNIZED DRUG - OTHER] PO (12:23)
[2020-10-31] MEDS ORDERED: K-Phos Origina500 MG PO (12:26)
--- NOTE | 2020-10-31 13:30 | NUR ---
DISCHARGE SUMMARY PT AxOx4. PLEASANT AND COOPERATIVE WITH CARE. PT DISCHARGING TO HOME TODAY. PT HAD SHOWER TODAY. C/O PAIN IN ANAM HIPS AND RLQ THIS AM, AND MEDICATED PER EMAR. STILL HAVING POOR APPETITE. TOLERATING CLEAR LIQUIDS. POS STOOL CULTURES CAME BACK TODAY. DR VERDUZCO ORAL ABX. DISCHARGE INSTRUCTIONS DISCUSSED WITH PATIENT, INCLUDING DC MEDS, AND FOLLOW UP WITH PCP. PATIENT VERBALIZES UNDERSTANDING. VITALS REVIEWED. PT DISCHARGED WITH FAMILY MEMBER. ESCORTED OUT VIA WC WITH PATENT AGENT.
== END 2020-10-31 13:30 | disposition home or self-care (01) ==
LOC: ER 15:07 → MEDS 15:08
PROVIDERS: Emergency Medicine; Internal Medicine; ADMIT Internal Medicine
DX: A41.59 Other Gram-negative sepsis (principal); A04.8 Other specified bacterial intestinal infections; R65.20 Severe sepsis without septic shock; N17.9 Acute kidney failure, unspecified; I95.89 Other hypotension; E83.39 Other disorders of phosphorus metabolism; E86.0 Dehydration; E11.9 Type 2 diabetes mellitus without complications; M79.7 Fibromyalgia; E89.0 Postprocedural hypothyroidism; Z86.2 Personal history of diseases of the blood and blood-forming organs and certain disorders involving the immune mechanism; Z92.21 Personal history of antineoplastic chemotherapy; Z85.44 Personal history of malignant neoplasm of other female genital organs; Z87.19 Personal history of other diseases of the digestive system; Z90.710 Acquired absence of both cervix and uterus; Z88.1 Allergy status to other antibiotic agents; Z79.84 Long term (current) use of oral hypoglycemic drugs; D51.9 Vitamin B12 deficiency anemia, unspecified; M16.0 Bilateral primary osteoarthritis of hip; G89.29 Other chronic pain; D50.9 Iron deficiency anemia, unspecified
CPT/HCPCS: 36415; 71045; 74177; 80053; 80069; 81001; 82947; 83880; 85025; 87015; 87045; 87046; 87077; 87205; 87493; 87899; 93005; 93010; 96361; 96372; 96374-59; 96376; 99285-25; A9270; G0378; J1650; J2405; J3010; J3480; J7030; P9612; Q9967

== ENCOUNTER 2023-12-25 15:42 | Emergency (ER) | payer MEDICARE, OTHER ==
[~2023-12-25] VITALS: Ht 162.6 cm; Wt 86.2 kg
[~2023-12-25 15:42] MED LIST changes: +AMPDEX5 PO; +FLUVOXAMINE MA100 M2 PO; +K-Phos Origina500 MG PO; +LEVO750 PO; +Midodrine HCl2.5 MG PO; +Norco 5-325 Ta1 EACH; +VISBIOME 112.51 EACH PO; +VITAMIN D5000 UNIT PO; +[UNRECOGNIZED DRUG - OTHER] PO
[2023-12-25] MEDS ORDERED: HYDROmorphone HCl/Pf 1MG SYR IV ONE (17:45)
[2023-12-25] MEDS ORDERED: RX Prepack 6 Tabs Oxycodone 5mg UD ONE (17:55)
[2023-12-25] MEDS ORDERED: Percocet 5-3251 EACH PO (17:55)
[2023-12-25] MEDS ORDERED: FLUVOXAMINE MA100 M3 PO (18:22)
[2023-12-25 18:45] VITALS: BP 100/80
== END 2023-12-25 19:00 | disposition home or self-care (01) ==
LOC: ER 15:42
DX: S42.292A Other displaced fracture of upper end of left humerus, initial encounter for closed fracture (principal); S42.212A Unspecified displaced fracture of surgical neck of left humerus, initial encounter for closed fracture; E66.01 Morbid (severe) obesity due to excess calories; E11.9 Type 2 diabetes mellitus without complications; M79.7 Fibromyalgia; E05.00 Thyrotoxicosis with diffuse goiter without thyrotoxic crisis or storm; Z68.32 Body mass index [BMI] 32.0-32.9, adult; W05.2XXA Fall from non-moving motorized mobility scooter, initial encounter; Z88.1 Allergy status to other antibiotic agents; Z79.84 Long term (current) use of oral hypoglycemic drugs; Z79.890 Hormone replacement therapy; Z79.899 Other long term (current) drug therapy
CPT/HCPCS: 73030; 73200; 76377; 96374; 99284-25; A9270; J1170

== ENCOUNTER 2025-07-02 08:48 | Inpatient (IN) | payer OTHER ==
[~2025-07-02] VITALS: Ht 162.6 cm; Wt 82.9 kg
[2025-07-02] VITALS (30 sets, daily range): BP systolic 74–126; BP diastolic 39–95
[~2025-07-02 08:48] MED LIST changes: +ATOR40TA PO; +Adderall 20 MG20 MG PO; +CeFAZolin Sodium 2,000 MG in NS 100 ML IV SCH; +Chlorhexidine Mouth Care 15 ML UDC MT SCH; +DICL75ER PO; +Diclofenac Pota50 MG PO; +FLUVOXAMINE MA100 M1 PO; +FLUVOXAMINE MA100 M3 PO; +METF500C PO; +METHYLPHENIDATE20 M1 PO; +METPHE20CR PO; +MIDO5 PO; +OMEPRAZOLE20 M1 PO; +PANT40 PO; +Percocet 5-3251 EACH PO; +Ropivacaine 0.5% HCl/Pf 123.125 MG,EPINEPHrine HCL 0.25 MG,Ketorolac Tromethamine 15 MG... INFIL SCH; +SENNA LAXATIVE8.6 MG PO; +Tranexamic Acid 100 ML IV SCH
[2025-07-02] MEDS ORDERED: TRAM50 PO (09:12)
--- NOTE | 2025-07-02 09:30 | NUR ---
PT INTO SDS VIA PERSONAL WHEELCHAIR.PT REPORTS 8/10 RIGHT HIP PAIN. HISTORY AND ALLERGIES REVIEWED.LUNGS CLEAR. NO NOTED SOB. SATS>90% ON RA.NPO STATUS CONFIRMED. PT PHONE GIVEN TO HER FATHER IRENE. PT WHEELCHAIR AND CLOTHING TAKEN TO ROOM 218.
[2025-07-02] MEDS ORDERED: Midazolam HCl 1MG / ML 2ML Vial ONE (10:12)
[2025-07-02] MEDS ORDERED: FentaNYL Citrate 50 MCG/ML 2 ML Injection ONE (10:12)
--- NOTE | 2025-07-02 10:18 | NUR ---
PT IS DIFFICULT VENIPUNCTURE. SHE REPORTS THAT SHE HAS HAD PROCEDURES CANCEL DUE TO INABILITY TO OBTAIN IV ACCESS.
[2025-07-02] MEDS ORDERED: Prochlorperazine Edisylate 10 mg Vial IV PRN (11:00)
[2025-07-02] MEDS ORDERED: HYDROmorphone HCl/Pf 1MG SYR IV PRN ×3 (11:05→13:50)
[2025-07-02] MEDS ORDERED: Magnesium Hydroxide Conc 10 ML UDC PO PRN (11:05)
[2025-07-02] MEDS ORDERED: Ondansetron HCl 2 MG / ML 2ML Vial IV PRN ×2 (11:05→13:50)
[2025-07-02] MEDS ORDERED: Metoclopramide HCl 5MG / ML 2ML Vial IV PRN (11:05)
[2025-07-02] MEDS ORDERED: FLU VACC TS2025-26(6MOS UP)/PF 45 MCG/0.5 ML SYRINGE IM SCH (11:10)
[2025-07-02] MEDS ORDERED: NS 1,000 ML IV SCH ×2 (11:20→23:00)
[2025-07-02] MEDS ORDERED: Insulin Regular 100 UNIT/ML 10ML Vial SC SCH (11:30)
[2025-07-02] MEDS ORDERED: Ketorolac Tromethamine 15mg Vial IV SCH (12:00)
[2025-07-02] MEDS ORDERED: FentaNYL Citrate 50 MCG/ML 2 ML Injection IV PRN ×2 (13:45→13:50)
[2025-07-02] MEDS ORDERED: DiphenhydrAMINE HCl 50 MG/ML 1ML Vial ONE (14:10)
[2025-07-02] MEDS ORDERED: DiphenhydrAMINE HCl 50 MG/ML 1ML Vial IV ONE (14:15)
[2025-07-02] MEDS ORDERED: HYDROmorphone HCl/Pf 1MG SYR ONE (14:20)
--- NOTE | 2025-07-02 14:30 | NUR ---
PT HAS HAD 25 MG IV BENEDRYL AND 0.5 MG IV DILAUDID FOR RESTLESS, ITCHING LEGS PT DOES REPORT A H/O OF RESTLESS LEG SYNDROME BUT THAT THIS IS "100 TIMES WORSE", PT W/LESS S/S NOW
--- NOTE | 2025-07-02 15:15 | NUR ---
PT WAITING FOR MEDICAL TAXI RIDE. DR. MARTE CALL PAIN MED AND ABX RX INTO [facility] FOR PT. Discharge instructions reviewed with patient. Patient verbalizes understanding. Copy given to patient to take home.
[2025-07-02] MEDS ORDERED: MetFORMIN HCl 500 mg PO SCH (17:00)
[2025-07-02] MEDS ORDERED: CeFAZolin Sodium 2,000 MG in NS 100 ML IV SCH (19:00)
[2025-07-02] MEDS ORDERED: NS 1,000 ML IV ONE (21:00)
[2025-07-02 21:33] LABS: BASOPHILS ABSOLUTE AUTO 0.03 K/mm3 (0.00-0.23); BASOPHILS PERCENT AUTO 0 % (0-2); EOSINOPHILS ABSOLUTE AUTO 0.04 K/mm3 (0.00-0.68); EOSINOPHILS PERCENT AUTO 0 % (0-6); Hematocrit 32.0 % (33.0-51.0); Hemoglobin 9.6 g/dL (11.5-16.0); IMMATURE GRAN ABSOLUTE AUTO 0.06 K/mm3 (0.00-0.10); IMMATURE GRAN PERCENT AUTO 0 % (0-1); LYMPHOCYTES ABSOLUTE AUTO 0.75 K/mm3 (0.84-5.20); LYMPHOCYTES PERCENT AUTO 5 % (21-46); MONOCYTES ABSOLUTE AUTO 0.69 K/mm3 (0.16-1.47); MONOCYTES PERCENT AUTO 5 % (4-13); Mean Corpuscular HGB Conc 30.0 g/dL (31.5-36.5); Mean Corpuscular Volume 103 fL (80-100); NEUTROPHILS ABSOLUTE AUTO 13.43 K/mm3 (1.96-9.15); NEUTROPHILS PERCENT AUTO 90 % (41-73); NRBC ABSOLUTE 0.00 K/mm3 (0.00-0.02); NRBC Auto 0.0 /100 WBC (0.0-0.2); Platelet Count 200 K/mm3 (150-400); RDW Coefficient Variation 13.2 % (11.7-14.2); RDW Standard Deviation 50.1 fL (35.1-46.3)
[2025-07-02 21:53] LABS: Alanine Aminotransfer (ALT/SGP 42.0 U/L (12-78); Albumin, Blood 3.0 g/dL (3.4-5.0); Albumin/Globulin Ratio 1.2 (0.8-1.8); Anion Gap 9.0 mmol/L (3-11); Aspartate Aminotrans (AST/SGOT 39.0 U/L (12-37); Bilirubin, Total 0.3 mg/dL (0.1-1.0); Blood Urea Nitrogen 21.0 mg/dL (8-24); CO2, Blood 23.0 mmol/L (21-32); Calcium, Blood 8.2 mg/dL (8.5-10.1); Chloride, Blood 110.0 mmol/L (98-108); Creatinine, Blood 0.93 mg/dL (0.40-1.00); Globulin, Blood 2.6 g/dL (2.2-4.0); Glucose, Blood 143.0 mg/dL (70-99); Potassium, Blood 3.9 mmol/L (3.5-5.5); Sodium, Blood 138.0 mmol/L (136-145); Total Protein, Blood 5.6 g/dL (6.4-8.2)
[2025-07-02 23:47] LABS: Total Iron Binding Capacity 451.0 ug/dL (250-450)
[2025-07-03] VITALS (18 sets, daily range): BP systolic 80–123; BP diastolic 39–76
[2025-07-03 04:34] LABS: BASOPHILS ABSOLUTE AUTO 0.02 K/mm3 (0.00-0.23); BASOPHILS PERCENT AUTO 0 % (0-2); EOSINOPHILS ABSOLUTE AUTO 0.09 K/mm3 (0.00-0.68); EOSINOPHILS PERCENT AUTO 1 % (0-6); Hematocrit 24.8 % (33.0-51.0); Hemoglobin 8.0 g/dL (11.5-16.0); IMMATURE GRAN ABSOLUTE AUTO 0.03 K/mm3 (0.00-0.10); IMMATURE GRAN PERCENT AUTO 0 % (0-1); LYMPHOCYTES ABSOLUTE AUTO 0.62 K/mm3 (0.84-5.20); LYMPHOCYTES PERCENT AUTO 9 % (21-46); MONOCYTES ABSOLUTE AUTO 0.34 K/mm3 (0.16-1.47); MONOCYTES PERCENT AUTO 5 % (4-13); Mean Corpuscular HGB Conc 32.3 g/dL (31.5-36.5); Mean Corpuscular Volume 98 fL (80-100); NEUTROPHILS ABSOLUTE AUTO 5.69 K/mm3 (1.96-9.15); NEUTROPHILS PERCENT AUTO 84 % (41-73); NRBC ABSOLUTE 0.00 K/mm3 (0.00-0.02); NRBC Auto 0.0 /100 WBC (0.0-0.2); Platelet Count 183 K/mm3 (150-400); RDW Coefficient Variation 13.4 % (11.7-14.2); RDW Standard Deviation 47.8 fL (35.1-46.3)
[2025-07-03 05:11] LABS: Anion Gap 7.0 mmol/L (3-11); Blood Urea Nitrogen 18.0 mg/dL (8-24); CO2, Blood 25.0 mmol/L (21-32); Calcium, Blood 7.6 mg/dL (8.5-10.1); Chloride, Blood 112.0 mmol/L (98-108); Creatinine, Blood 0.94 mg/dL (0.40-1.00); Glucose, Blood 98.0 mg/dL (70-99); Magnesium, Blood 1.6 mg/dL (1.6-2.4); Potassium, Blood 3.9 mmol/L (3.5-5.5); Sodium, Blood 140.0 mmol/L (136-145)
[2025-07-03] MEDS ORDERED: Levothyroxine Sodium 0.15 MG Tab PO SCH (06:00)
[2025-07-03] MEDS ORDERED: Trimethoprim/Sulfamethoxazole DS Tab PO SCH (09:00)
[2025-07-03] MEDS ORDERED: Amphet Asp/Amphet/D-Amphet 5 MG Tab PO SCH (09:00)
--- NOTE | 2025-07-03 09:01 | NUR ---
SUMMARY PT WAS UP IN CHAIR AT SHIFT CHANGE. MED PT FOR C/O PAIN AND AMBULATED TO BATHROOM.ONCE PT WAS BACK TO BED AND SETTLED, PT WAS BECOMING GROGGY, BUT ORIENTED AND APPRIOPRIATE.HOWEVER, PT BECAME HYPOTENSIVE. PLEASE SEE VS RECORDS.HOSPITALIST CONSULT WAS ORDERED AND PT WAS SEEN BY NIURKA,ORDERS FOR EKG WERE OBTAINED AND COMPLETED.PT AND FAMILY REPORTED SHE TAKES TRAMADOL AT HOME AND DOES WELL WITH IT.PT REPORTS HX CKD WHICH THEY STATE IS POSSIBLE STAGE 4.THIS RN NOT GIVING TORADOL DUE TO THIS NIURKA ORDERED TRAMADOL PER THEIR REQUEST.IV BOLUS WERE GIVEN AT 100O ML X 2 TOTAL WITH SOME IMPROVEMENT OF MAP AND BP STABLE BUT LOW.NIURKA AWARE OF ONGOING VS.NIURKA WAS NOTIFIED OF ONGOING HIGH LACTICS UNTIL RETURNED TO 1.1 THIS AM.PT C/O INCREASED PAIN THIS AM AND WAS GIVEN TRAMADOL PO,BUT SHORTLY AFTER BEING GIVEN, PT C/O "LIGHTHEADEDNESS" THEN -DAUGHTER IN LAW REPORTS RECENTLY PT WAS HAVING "SOME"ISSUES WITH THIS AFTER TAKING TRAMADOL.I SPOKE WITH NIURKA THIS AM AND ADVISED OF PT LIGHTHEADEDNESS, AND DISCUSSED AM LABS,HE ADVISED TO TRY STICKING WITH ROXICODONE.PT AND FAMILY ADVISED OF TX PLAN,MEDS VS AND ORDERS THROUGHOUT SHIFT,INCLUDING PT AND FAMILY DISCUSSION WITH NIURKA DURING ROUNDINGS TONIGHT.PT ALERT AND RESTING IN BED DURING SHIFT REPORT. DAY RN AGRESS TO FOLLOW UP WITH TX PLAN,PAIN MEDS AND VS.SURGICALLY DOING WELL,INCSIONS CD/I,WIGGLE TOES AND DOES ANKLE EXERCISES.CMS INTACT.NIURKA AWARE INITIAL LOWER EXT REFILL 5 SED, NOW DONT TO 3.5-4.
[2025-07-03 14:13] LABS: Hematocrit 25.1 % (33.0-51.0); Hemoglobin 8.0 g/dL (11.5-16.0); Mean Corpuscular HGB Conc 31.9 g/dL (31.5-36.5); Mean Corpuscular Volume 98 fL (80-100); NRBC ABSOLUTE 0.00 K/mm3 (0.00-0.02); NRBC Auto 0.0 /100 WBC (0.0-0.2); Platelet Count 185 K/mm3 (150-400); RDW Coefficient Variation 13.5 % (11.7-14.2); RDW Standard Deviation 48.0 fL (35.1-46.3)
--- NOTE | 2025-07-03 16:10 | NUR ---
SHIFT SUMMARY PATIENT POD# 1 R TALYA. SITES X3 WITH TEGADERM AND TELFA ARE C.D.I. MEDICATED FOR PAIN PER EMAR. PATIENT HAS BEEN HAVING LOW BP 80S/40S, HOSPITALIST CONSULTED LAST NIGHT AND ORDERS FOR MIDODRINE TID TODAY. LAST BP 121/60. PATIENT TOLERATING BEING UP TO CHAIR, USES BATHROOM. WAS HAVING SOME DIZZINESS WITH THE LOW BPS. PATIENT DENIES DIZZINESS THIS AFTERNOON. THERAPY IN TO WORK WITH PATIENT AT 1600. FAMILY IN ROOM. CALL LIGHT IN REACH.
[2025-07-04 04:23] VITALS: BP 106/52
[2025-07-04 04:40] LABS: BASOPHILS ABSOLUTE AUTO 0.02 K/mm3 (0.00-0.23); BASOPHILS PERCENT AUTO 0 % (0-2); EOSINOPHILS ABSOLUTE AUTO 0.25 K/mm3 (0.00-0.68); EOSINOPHILS PERCENT AUTO 4 % (0-6); Hematocrit 26.9 % (33.0-51.0); Hemoglobin 8.4 g/dL (11.5-16.0); IMMATURE GRAN ABSOLUTE AUTO 0.03 K/mm3 (0.00-0.10); IMMATURE GRAN PERCENT AUTO 0 % (0-1); LYMPHOCYTES ABSOLUTE AUTO 0.66 K/mm3 (0.84-5.20); LYMPHOCYTES PERCENT AUTO 10 % (21-46); MONOCYTES ABSOLUTE AUTO 0.41 K/mm3 (0.16-1.47); MONOCYTES PERCENT AUTO 6 % (4-13); Mean Corpuscular HGB Conc 31.2 g/dL (31.5-36.5); Mean Corpuscular Volume 98 fL (80-100); NEUTROPHILS ABSOLUTE AUTO 5.38 K/mm3 (1.96-9.15); NEUTROPHILS PERCENT AUTO 80 % (41-73); NRBC ABSOLUTE 0.00 K/mm3 (0.00-0.02); NRBC Auto 0.0 /100 WBC (0.0-0.2); Platelet Count 193 K/mm3 (150-400); RDW Coefficient Variation 13.6 % (11.7-14.2); RDW Standard Deviation 48.7 fL (35.1-46.3)
[2025-07-04 04:55] LABS: Anion Gap 8.0 mmol/L (3-11); Blood Urea Nitrogen 16.0 mg/dL (8-24); CO2, Blood 26.0 mmol/L (21-32); Calcium, Blood 8.2 mg/dL (8.5-10.1); Chloride, Blood 110.0 mmol/L (98-108); Creatinine, Blood 0.99 mg/dL (0.40-1.00); Glucose, Blood 109.0 mg/dL (70-99); Potassium, Blood 3.9 mmol/L (3.5-5.5); Sodium, Blood 140.0 mmol/L (136-145)
--- NOTE | 2025-07-04 04:57 | NUR ---
GEOSPATIAL PROGRAM MANAGEMENT OFFICER SUMMARY PT IS POD 1 FOR R TALYA. DRESSINGS X2 C/D/I. PAIN WELL CONTROLLED WITH PRN OXYCODONE 1 TAB. BP HAS BEEN IMPROVED AND STABLE THROUGH THE NIGHT WITH SBP >100. PT HAS BEEN UP TO THE BATHROOM MULTIPLE TIMES WITH MINIMAL ASSIST AND FWW. VSS, WCTM.
[2025-07-04 07:15] VITALS: BP 99/49
[2025-07-04 14:05] VITALS: BP 105/55
[2025-07-04] MEDS ORDERED: MIDO5 PO (14:59)
[2025-07-04] MEDS ORDERED: SULTRIDS PO (15:06)
[2025-07-04] MEDS ORDERED: ACET500 PO (15:06)
[2025-07-04] MEDS ORDERED: OXAYDO5 M1 PO (15:08)
--- NOTE | 2025-07-04 18:42 | NUR ---
DISCHARGE SUMMARY POD2 R TALYA, A/OX4, VSS, TOLERATING PO, PAIN MANAGED PER EMAR, BLOOD PRESSURE DOING BETTER WITH HER LOWEST SYSTOLIC AT 99 THIS MORNING PRIOR TO ADJUSTING HER MIDODRINE. SHE WORKED WITH THERAPY TODAY. DISCUSSED DISCHARGE INSTRUCTIONS INCLUDING HOMECARE, MEDICATIONS, AND FOLLOW UP APPOINTMENTS. PT REPORTS SHE IS UNABLE TO GET HER PRESCRIBED BLOOD THINNER DUE TO NOT HAVING PRESCRIPTION COVERAGE AND FINANCIAL RESTRAINTS. DISCUSSED WITH ATTENDING MEDICAL MD WHO ADJUSTED THIS TO 81 ASPIRIN BID X6 WEEKS. PT UPDATED ON THIS CHANGE, MIDODRINE FAXED TO PHARMACY PER HER REQUEST. PT ESCORTED OUT VIA WC TO PRIVATE AUT[employer] TO GO HOME.
== END 2025-07-04 17:29 | disposition home health service (06) | DRG 982 ==
LOC: SURS 08:48 → ORSCMMR 08:48 → ORD 13:15 → ORSCMMR 13:15 → SURS 14:46 → ORSCMMR 07-03 14:39 → SURS 07-03 14:39
PROVIDERS: Family Medicine; Nurse Practitioner Acute Care; Orthopaedic Surgery; ADMIT Family Medicine
PROC: 3E03329 Introduction of Other Anti-infective into Peripheral Vein, Percutaneous Approach (ICD-10-PCS; 2025-07-02)
PROC: 0SR9039 Replacement of Right Hip Joint with Ceramic Synthetic Substitute, Cemented, Open Approach (ICD-10-PCS; principal; 2025-07-02 10:00)
DX: I95.81 Postprocedural hypotension (principal); E87.20 Acidosis, unspecified; M16.11 Unilateral primary osteoarthritis, right hip; M79.7 Fibromyalgia; G25.81 Restless legs syndrome; E78.5 Hyperlipidemia, unspecified; I48.91 Unspecified atrial fibrillation; E66.01 Morbid (severe) obesity due to excess calories; D53.9 Nutritional anemia, unspecified; R73.03 Prediabetes; M54.50 Low back pain, unspecified; Z90.722 Acquired absence of ovaries, bilateral; Z85.42 Personal history of malignant neoplasm of other parts of uterus; Z68.31 Body mass index [BMI] 31.0-31.9, adult; Z79.890 Hormone replacement therapy; Z79.899 Other long term (current) drug therapy; Z98.891 History of uterine scar from previous surgery; Z90.710 Acquired absence of both cervix and uterus; Z96.642 Presence of left artificial hip joint; Z88.8 Allergy status to other drugs, medicaments and biological substances
CPT/HCPCS: 36415; 72170; 80048; 80053; 82607; 82746; 82947; 83540; 83550; 83605; 83735; 84443; 85025; 85027; 93005; 93010; 97110; 97116; 97162; 97165; 97530; 97535; A9270; C1713; C1776; J0166; J0690; J0735; J1171; J1200; J1815; J1885; J2250; J2704; J2795; J3010; J3373; J7030; J7050; J7120